=== PATIENT | male | born 1945 | race Caucasian/White ===

== ENCOUNTER 2018-11-02 07:17 | Inpatient (IN) | payer MEDICARE, BC ==
[2018-11-02 07:55] LABS: HEMATOCRIT 39.3 % (42.0-52.0); HEMOGLOBIN 14.1 gm/dl (14.0-18.0); MEAN CELL VOLUME 99.7 fl (81-97); MEAN CORPUSCULAR HGB CONC 35.9 g/dl (32-36); MEAN PLATELET VOLUME 10.6 fl (7.4-10.4); PLATELET COUNT 191 K/uL (130-400); RED BLOOD COUNT 3.94 M/uL (4.40-5.70); RED CELL DISTRIBUTION WIDTH 13.3 % (11.5-14.5); WHITE BLOOD COUNT W/O DIFF 14.3 K/uL (4.2-12.2)
[2018-11-02 07:57] LABS: MEAN CORPUSCULAR HEMOGLOBIN 35.7 pg (27-33)
[2018-11-02 08:04] LABS: BLOOD UREA NITROGEN 6 mg/dL (8-23); CREATININE 0.5 mg/dL (0.7-1.2); EST GLOMERULAR FILTRATION RATE > 60 mL/min
[2018-11-02 08:05] LABS: TOTAL PROTEIN 5.5 g/dL (6.6-8.7)
[2018-11-02 08:07] LABS: GLUCOSE,RANDOM 114 mg/dL (74-109)
[2018-11-02 08:09] LABS: ALB/GLOB RATIO 1.8 (1.1-1.8); ALBUMIN 3.5 g/dL (4.0-5.0); ALKALINE PHOSPHATASE 101 U/L (40-129); ALT/SGPT 28 U/L (<41); AST/SGOT 51 U/L (10.0-50.0); CREATINE PHOSPHOKINASE 1535 U/L (39-308)
[2018-11-02 08:11] LABS: CKMB 5.3 ng/mL (<6.73)
[2018-11-02 08:13] LABS: PLATELET ESTIMATE NORMAL (NORMAL)
--- NOTE | 2018-11-02 08:20 | Emergency Department Record ---
History of Present Illness - General Chief complaint: Weakness Stated complaint: WEAKNESS Time Seen by Provider: 11/02/18 07:30 Source: Patient, EMS Mode of Arrival: EMS Limitations: No limitations - History of Present Illness Initial comments: pt fell last night and was too weak to get back uo. he states his legs have been getting progressively weaker MD Complaint: Generalized weakness Onset/Timin -: Hour(s) Location: Generalized Improves with: None Worsens with: None Associated Symptoms: Denies other symptoms - [place] Coma Scale Eye Response: (4) Open spontaneously Motor Response: (6) Obeys commands Verbal Response: (5) Oriented [place] Total: 15 - Symptoms of Stroke Symptoms of stroke: Muscle Weakness, Unsteady When Walking - Related Data Home Medications Medication Instructions Recorded Confirmed Last Taken Amlodipine Besylate/Benazepril 1 tab PO DAILY 11/02/18 11/02/18 11/01/18 [Amlodipine-Benazepril 10-40 mg] Aspirin [Adult Low Dose Aspirin EC] 81 mg PO DAILY 11/02/18 11/02/18 11/01/18 Carvedilol [Coreg] 12.5 mg PO DAILY 11/02/18 11/02/18 11/01/18 Clonidine HCl [Catapres] 0.1 mg PO BID 11/02/18 11/02/18 11/01/18 Hydrocodone/Acetaminophen 1 tab PO Q8H PRN 11/02/18 11/02/18 11/01/18 18:00 [Hydrocodone/Acetaminophen 5mg/325mg] Metformin HCl [Metformin HCl ER] 500 mg PO BID 11/02/18 11/02/18 11/01/18 Multivit-Min/FA/Lycopen/Lutein 1 each PO DAILY 11/02/18 11/02/18 11/01/18 [Centrum Silver Men Tablet] Tamsulosin HCl [Flomax] 0.4 mg PO QHS 11/02/18 11/02/18 11/01/18 Allergies Allergy/AdvReac Type Severity Reaction Status Date / Time No Known Drug Allergies Allergy Verified 11/02/18 07:19 Travel Screening - Travel/Exposure Within Last 30 Days Have you traveled within the last 30 days?: No - Travel/Exposure Within Last Year Have you traveled outside the [place] in the last year?: No - Additonal Travel Details Have you been exposed to anyone with a communicable illness?: No - Travel Symptoms Symptom Screening: None Review of Systems Reviewed: No additional complaints except as noted below Constitutional: Reports: As per HPI. Denies: Chills, Fever, Malaise, Night sweats, Weakness, Weight change Eyes: Reports: As per HPI. Denies: Eye discharge, Eye pain, Photophobia, Vision change ENT: Reports: As per HPI. Denies: Congestion, Dental pain, Ear pain, Epistaxis, Hearing loss, Throat pain Respiratory: Reports: As per HPI. Denies: Cough, Dyspnea, Hemoptysis, Stridor, Wheezes Cardiovascular: Reports: As per HPI. Denies: Arrhythmia, Chest pain, Dyspnea on exertion, Edema, Murmurs, Orthopnea, Palpitations, Paroxysmal nocturnal dyspnea, Rheumatic Fever, Syncope Endocrine: Reports: As per HPI. Denies: Fatigue, Heat or cold intolerance, Polydipsia, Polyuria Gastrointestinal: Reports: As per HPI. Denies: Abdominal pain, Constipation, Diarrhea, Hematemesis, Hematochezia, Melena, Nausea, Vomiting Genitourinary: Reports: As per HPI. Denies: Dysuria, Frequency, Hematuria, Incontinence, Retention, Testicular pain, Testicular mass, Urgency Musculoskeletal: Reports: As per HPI. Denies: Arthralgia, Back pain, Gout, Joint swelling, Myalgia, Neck pain Skin: Reports: As per HPI. Denies: Bruising, Change in color, Change in hair/nails, Lesions, Pruritus, Rash Neurological: Reports: As per HPI, Weakness. Denies: Abnormal gait, Confusion, Headache, Numbness, Paresthesias, Seizure, Tingling, Tremors, Vertigo Psychiatric: Reports: As per HPI. Denies: Anxiety, Auditory hallucinations, Depression, Homicidal thoughts, Suicidal thoughts, Visual hallucinations Hematological/Lymphatic: Reports: As per HPI. Denies: Anemia, Blood Clots, Easy bleeding, Easy bruising, Swollen glands Past Medical History - SOCIAL HISTORY Smoking Status: Current every day smoker Alcohol Use: Heavy Alcohol Use Comment: 10 to 12 beers a day Drug Use: None - RESPIRATORY Hx Respiratory Disorders: No - CARDIOVASCULAR Hx Cardio Disorders: Yes Hx Hypertension: Yes - NEURO Hx Neuro Disorders: Yes Comment:: see surgeries - GI Hx GI Disorders: No - Hx Genitourinary Disorders: No - ENDOCRINE Hx Endocrine Disorders: Yes Hx Diabetes: Yes - MUSCULOSKELETAL Hx Musculoskeletal Disorders: No - PSYCH Hx Psych Problems: No - HEMATOLOGY/ONCOLOGY Hx Hematology/Oncology Disorders: No Family Medical History Any Significant Family History?: No Family Hx Comment (NOT TO BE USED IN PLACE OF ITEMS BELOW): adopted Physical Exam - General General Appearance: Alert, Oriented x3, Cooperative, No acute distress - Head Head exam: Normal inspection - Eye Eye exam: Normal appearance, PERRL, EOMI Pupils: Normal accommodation - ENT ENT exam: Normal exam, Mucous membranes moist, Normal external ear exam, Normal orophraynx Ear exam: Normal external inspection. negative: External canal tenderness Nasal Exam: Normal inspection. negative: Discharge, Sinus tenderness Mouth exam: Normal external inspection, Tongue normal Teeth exam: Normal inspection. negative: Dental caries Throat exam: Normal inspection. negative: Tonsillar erythema, Tonsillar exudate - Neck Neck exam: Normal inspection, Full ROM. negative: Tenderness - Respiratory Respiratory exam: Normal lung sounds bilaterally. negative: Respiratory distress - Cardiovascular Cardiovascular Exam: Regular rate, Normal rhythm, Normal heart sounds - GI/Abdominal GI/Abdominal exam: Soft, Normal bowel sounds. negative: Tenderness - Rectal Rectal exam: Deferred - exam: Deferred - Extremities Extremities exam: Normal inspection, Full ROM, Normal capillary refill, Other (edema and ecchymosis rle). negative: Tenderness - Back Back exam: Reports: Normal inspection, Full ROM. Denies: Muscle spasm, Rash noted, Tenderness - Neurological Neurological exam: Alert, CN II-XII intact, Normal gait, Oriented X3 - Psychiatric Psychiatric exam: Normal affect, Normal mood - Skin Skin exam: Dry, Intact, Normal color, Warm Course Vital Signs 11/02/18 07:20 Temperature 97.7 F Pulse Rate 77 Respiratory 18 Rate Blood Pressure 143/69 Pulse Ox 98 Medical Decision Making - Lab Data Result diagrams: 11/02/18 07:29 11/02/18 07:29 Lab Results 11/02/18 11/02/18 Range/Units 07:29 07:29 WBC 14.3 H (4.2-12.2) K/uL RBC 3.94 L (4.40-5.70) M/uL Hgb 14.1 (14.0-18.0) gm/dl Hct 39.3 L (42.0-52.0) % MCV 99.7 H (81-97) fl MCH 35.7 H (27-33) pg MCHC 35.9 (32-36) g/dl RDW 13.3 (11.5-14.5) % Plt Count 191 (130-400) K/uL MPV 10.6 H (7.4-10.4) fl Neutrophils % 86.0 H (47-80) % Band Neutrophils % 3.0 (0-5) % Eosinophils % Not Reportable Basophils % Not Reportable Absolute Neutrophils 12.00 Lymphocytes 8.0 L (16-45) % Monocytes 3.0 (0-9) % Platelet Estimate Normal (NORMAL) RBC Morphology Normal Sodium 126 L (136-145) mmol/L Potassium 4.8 H (3.4-4.5) mmol/L Chloride 89 L (98-107) mmol/L Carbon Dioxide 21.0 L (22-29) mmol/L Anion Gap 16.0 (7-16) BUN 6 L (8-23) mg/dL Creatinine 0.5 L (0.7-1.2) mg/dL Estimated GFR > 60 mL/min Random Glucose 114 H (74-109) mg/dL Calcium 8.6 L (8.8-10.2) mg/dL Total Bilirubin 0.60 (0.2-1.0) mg/dL AST 51 H (10.0-50.0) U/L ALT 28 (<41) U/L Alkaline Phosphatase 101 (40-129) U/L Creatine Kinase 1535 H (39-308) U/L CK-MB (CK-2) 5.3 (<6.73) ng/mL Troponin T < 0.010 (0-0.010) ng/mL Total Protein 5.5 L (6.6-8.7) g/dL Albumin 3.5 L (4.0-5.0) g/dL Globulin 2.0 (1.4-4.8) gm/dL Albumin/Globulin Ratio 1.8 (1.1-1.8) Ethyl Alcohol 0.000 (0-0.010) g/dL Disposition Disposition: Admit Clinical Impression: Hyponatremia Disposition: Still a Patient at [facility] Decision to Admit: Admit from ER Decision to Admit Date: 11/02/18 Decision to Admit Time: 09:33 Forms: Patient Portal Access Quality - Quality Measures Quality Measures: N/A - Blood Pressure Screening Does Patient Have Any of the Following: Active Dx of HTN Blood Pressure Classification: Hypertensive Reading Systolic Measurement: 143 Diastolic Measurement: 69 Screening for High Blood Pressure: Patient Exclusion, Hx of HTN [[id number]]
[2018-11-02] MEDS ORDERED: MVI, ADULT NO.4 WITH VIT K 10 ML, THIAMINE HCL IV 100 MG in 0.9 % SODIUM CHLORIDE 1000M... IV SCH ×3 (09:00)
[2018-11-02 09:43] LABS: URINE APPEARANCE CLEAR; URINE BILIRUBIN NEGATIVE (NEGATIVE); URINE BLOOD NEGATIVE (NEGATIVE); URINE COLOR YELLOW; URINE GLUCOSE (UA) NEGATIVE (NEGATIVE); URINE KETONE 15 mg/dL (NEGATIVE); URINE LEUKOCYTE ESTERASE NEGATIVE (NEGATIVE); URINE NITRITE NEGATIVE (NEGATIVE); URINE PROTEIN NEGATIVE (NEGATIVE); URINE UROBILINOGEN 0.2 E.U./dL (0.20 - 1.00)
[2018-11-02] MEDS ORDERED: ACETAMINOPHEN 500 MG TABLET PO PRN (12:11)
[2018-11-02] MEDS ORDERED: HYDROCODONE/APAP 5/325MG TABLET PO PRN (12:11)
[2018-11-02] MEDS: CLONIDINE HCL 0.1 MG TABLET PO SCH ×2 (13:33→21:47)
[2018-11-02] MEDS: NICOTINE 21 MG/24 HOUR PATCH TD SCH (13:33)
[2018-11-02] MEDS: CARVEDILOL 12.5 MG TABLET PO SCH (13:33)
[2018-11-02] MEDS: METFORMIN ER HCL 500 MG TAB.ER.24H PO SCH ×2 (13:34→21:48)
[2018-11-02 19:01] LABS: OSMOLALITY,URINE 242 mOsm/kg (250-1200)
[2018-11-02 19:11] LABS: OSMOLALITY,SERUM 262 mOsm/kg (280-295)
[2018-11-02] MEDS: LORAZEPAM 2 MG/ML VIAL IV PRN (19:37)
[2018-11-02] MEDS: TAMSULOSIN HCL 0.4 MG CAP.ER.24H PO SCH (21:47)
[2018-11-03] MEDS ORDERED: ZINC OXIDE 28.35 GM TUBE TOP ONE (00:31)
[2018-11-03] MEDS: LORAZEPAM 2 MG/ML VIAL IV PRN ×2 (05:31→18:10)
--- NOTE | 2018-11-03 09:08 | History & Physical ---
History of Present Illness - Date of Service Date of Service for History & Physical: 11/03/18 - History of Present Illness Admitting Diagnosis: hyponatremia, weakness. etoh abuse History of Present Illness: Mr. Araiza is a 73 y/o male who came in after being found by his neighbour in his home. The patient says that he was getting up out of his recliner on Saturday night and fell like his legs gave way from under him and he fell forward. He says that he wasn't able to get up and couldn't get to the phone to call anyone some he stayed on the floor all night approximately 8 hours. His neighbour hadn't seen him as usual and came to check on him and found him lying on the floor and called EMS. The patient says that it has happened before where he has passed out in his basement due to the same concerns of weakness (2009). He was admitted to [facility] at that time and he says that it was due to too much medication. ED course: - CT head negative for acute injury. - CXR negative - Labs WBC 14.4. Na 126 PCP: Dr. Duarte Travel Screening - Travel/Exposure Within Last 30 Days Have you traveled within the last 30 days?: No - Travel/Exposure Within Last Year Have you traveled outside the [place] in the last year?: No - Additonal Travel Details Have you been exposed to anyone with a communicable illness?: No - Travel Symptoms Symptom Screening: None Review of Systems Constitutional: Reports: As per HPI. Denies: Chills, Fever, Malaise, Night sweats, Weakness, Weight change Eyes: Reports: As per HPI. Denies: Eye discharge, Eye pain, Photophobia, Vision change ENT: Reports: As per HPI. Denies: Congestion, Dental pain, Ear pain, Epistaxis, Hearing loss, Throat pain Respiratory: Reports: As per HPI. Denies: Cough, Dyspnea, Hemoptysis, Stridor, Wheezes Cardiovascular: Reports: As per HPI. Denies: Arrhythmia, Chest pain, Dyspnea on exertion, Edema, Murmurs, Orthopnea, Palpitations, Paroxysmal nocturnal dyspnea, Rheumatic Fever, Syncope Endocrine: Reports: As per HPI. Denies: Fatigue, Heat or cold intolerance, Polydipsia, Polyuria Gastrointestinal: Reports: As per HPI. Denies: Abdominal pain, Constipation, Diarrhea, Hematemesis, Hematochezia, Melena, Nausea, Vomiting Genitourinary: Reports: As per HPI. Denies: Dysuria, Frequency, Hematuria, Incontinence, Retention, Testicular pain, Testicular mass, Urgency Musculoskeletal: Reports: As per HPI. Denies: Arthralgia, Back pain, Gout, Joint swelling, Myalgia, Neck pain Skin: Reports: As per HPI. Denies: Bruising, Change in color, Change in hair/nails, Lesions, Pruritus, Rash Neurological: Reports: As per HPI, Weakness. Denies: Abnormal gait, Confusion, Headache, Numbness, Paresthesias, Seizure, Tingling, Tremors, Vertigo Psychiatric: Reports: As per HPI. Denies: Anxiety, Auditory hallucinations, Depression, Homicidal thoughts, Suicidal thoughts, Visual hallucinations Hematological/Lymphatic: Reports: As per HPI. Denies: Anemia, Blood Clots, Easy bleeding, Easy bruising, Swollen glands Past Medical History - SOCIAL HISTORY Smoking Status: Current every day smoker Alcohol Use: Heavy Alcohol Use Comment: beer 10-12 daily Drug Use: None - RESPIRATORY Hx Respiratory Disorders: No - CARDIOVASCULAR Hx Cardio Disorders: Yes Hx Hypertension: Yes - NEURO Hx Neuro Disorders: Yes Comment:: see surgeries - GI Hx GI Disorders: No - Hx Genitourinary Disorders: No - ENDOCRINE Hx Endocrine Disorders: Yes Hx Diabetes: Yes Hx Thyroid Disease: No - MUSCULOSKELETAL Hx Musculoskeletal Disorders: No - PSYCH Hx Psych Problems: No - HEMATOLOGY/ONCOLOGY Hx Hematology/Oncology Disorders: No Family Medical History Any Significant Family History?: No Family Hx Comment (NOT TO BE USED IN PLACE OF ITEMS BELOW): adopted H&P Meds/Allergies - Allergies Allergies: Allergies Allergy/AdvReac Type Severity Reaction Status Date / Time No Known Drug Allergies Allergy Verified 11/02/18 07:19 - Home Medications Home Medications Medication Instructions Recorded Confirmed Last Taken Amlodipine Besylate/Benazepril 1 tab PO DAILY 11/02/18 11/02/18 11/01/18 [Amlodipine-Benazepril 10-40 mg] Aspirin [Adult Low Dose Aspirin EC] 81 mg PO DAILY 11/02/18 11/02/18 11/01/18 Carvedilol [Coreg] 12.5 mg PO DAILY 11/02/18 11/02/18 11/01/18 Clonidine HCl [Catapres] 0.1 mg PO BID 11/02/18 11/02/18 11/01/18 Hydrocodone/Acetaminophen 1 tab PO Q8H PRN 11/02/18 11/02/18 11/01/18 18:00 [Hydrocodone/Acetaminophen 5mg/325mg] Metformin HCl [Metformin HCl ER] 500 mg PO BID 11/02/18 11/02/18 11/01/18 Multivit-Min/FA/Lycopen/Lutein 1 each PO DAILY 11/02/18 11/02/18 11/01/18 [Centrum Silver Men Tablet] Tamsulosin HCl [Flomax] 0.4 mg PO QHS 11/02/18 11/02/18 11/01/18 - Active Medications Active Medications: Current Medications Acetaminophen (Tylenol 500mg Tab) 1,000 mg PO Q6H PRN PRN Reason: PAIN - MILD(1-4)/FEVER Hydrocodone Bitart/Acetaminophen ([place] 5mg/325mg) 1 each PO Q8H PRN PRN Reason: PAIN - MILD TO MODERATE (1-7) Amlodipine Besylate (Norvasc) 10 mg PO DAILY [facility] Aspirin (Ecotrin (Ec)) 81 mg PO DAILY [facility] Benazepril HCl (Lotensin) 40 mg PO DAILY [facility] Carvedilol (Coreg) 12.5 mg PO DAILY [facility] Last Admin: 11/02/18 13:33 Dose: 12.5 mg Documented by: Clonidine HCl (Catapres) 0.1 mg PO BID [facility] Last Admin: 11/02/18 21:47 Dose: 0.1 mg Documented by: Multivitamins/Minerals 10 ml/Thiamine HCl 100 mg/ Sodium Chloride 1,011 mls @ 0 mls/hr IV .Q0M [facility] Last Infusion: 11/02/18 16:40 Dose: Infused Documented by: Lorazepam (Ativan) 1 mg IV Q8H PRN PRN Reason: ANXIETY Last Admin: 11/03/18 05:31 Dose: 1 mg Documented by: Metformin HCl (Glucophage Xr) 500 mg PO BID [facility] Last Admin: 11/02/18 21:48 Dose: 500 mg Documented by: Nicotine (Nicotine 21mg) 1 patch TD Q24H [facility] Last Admin: 11/02/18 13:33 Dose: 1 patch Documented by: Tamsulosin HCl (Flomax) 0.4 mg PO QHS [facility] Last Admin: 11/02/18 21:47 Dose: 0.4 mg Documented by: Physical Exam - Vital Signs Vital Signs: Vital Signs - Last 24 Hrs Temp Pulse Pulse Resp BP BP Pulse Ox 11/03/18 07:38 97.9 F 95 H 16 111/61 99 11/03/18 06:00 97.1 F L 85 16 123/69 98 11/03/18 01:55 97.9 F 81 18 119/47 99 11/02/18 22:00 98.5 F 87 16 135/63 99 11/02/18 20:56 16 11/02/18 17:00 98.8 F 83 16 162/75 97 11/02/18 11:00 98.4 F 77 16 143/69 99 11/02/18 10:41 98.4 F 98 H 16 158/82 99 11/02/18 09:33 97.5 F L 85 16 146/70 97 - General General Appearance: Alert, Oriented x3, Cooperative, No acute distress Limitations: No limitations - Head Head exam: Normal inspection - Eye Eye exam: Normal appearance, PERRL, EOMI Pupils: Normal accommodation - ENT ENT exam: Normal exam, Mucous membranes moist, Normal external ear exam, Normal orophraynx Ear exam: Normal external inspection. negative: External canal tenderness Nasal Exam: Normal inspection. negative: Discharge, Sinus tenderness Mouth exam: Normal external inspection, Tongue normal Teeth exam: Normal inspection. negative: Dental caries Throat exam: Normal inspection. negative: Tonsillar erythema, Tonsillar exudate - Neck Neck exam: Normal inspection, Full ROM. negative: Tenderness - Respiratory Respiratory exam: Normal lung sounds bilaterally. negative: Respiratory di stress - Cardiovascular Cardiovascular Exam: Regular rate, Normal rhythm, Normal heart sounds Peripheral Pulses: 3+: Radial (R), Radial (L), Dorsalis Pedis (L) - GI/Abdominal GI/Abdominal exam: Soft, Normal bowel sounds. negative: Tenderness - Rectal Rectal exam: Deferred - exam: Deferred - Extremities Extremities exam: Normal inspection, Full ROM, Normal capillary refill, Other (edema and ecchymosis rle). negative: Tenderness Image of Full Body: 1 - Left hip bruising Image of Feet: 1 - Right ankle brusing and swelling - Back Back exam: Reports: Normal inspection, Full ROM. Denies: Muscle spasm, Rash noted, Tenderness - Neurological Neurological exam: Alert, CN II-XII intact, Normal gait, Oriented X3 - Psychiatric Psychiatric exam: Normal affect, Normal mood - Skin Skin exam: Dry, Intact, Normal color, Warm Results - Labs Result Diagrams: 11/03/18 09:05 11/03/18 09:05 Labs Last 24 Hours: Laboratory Results - last 24 hr 11/02/18 11/02/18 11/02/18 07:29 07:29 09:30 POC Glucose Serum Osmolality 262 L Magnesium 1.9 Urine Color Yellow Urine Appearance Clear Urine pH 5.5 Ur Specific [place] <= 1.005 Urine Protein Negative Urine Glucose (UA) Negative Urine Ketones 15 mg/dl H Urine Blood Negative Urine Nitrite Negative Urine Bilirubin Negative Urine Urobilinogen 0.2 Ur Leukocyte Esterase Negative Urine Osmolality 242 L 11/02/18 11/02/18 11/03/18 17:39 22:00 08:26 POC Glucose 121 H 125 H 96 Serum Osmolality Magnesium Urine Color Urine Appearance Urine pH Ur Specific [place] Urine Protein Urine Glucose (UA) Urine Ketones Urine Blood Urine Nitrite Urine Bilirubin Urine Urobilinogen Ur Leukocyte Esterase Urine Osmolality VTE H&P Assessment - Risk for VTE Risk for VTE: Yes Risk Level: High Risk Assessment Date: 11/03/18 Risk Assessment Time: 09:02 VTE Orders Placed or Will Be Placed: Yes Plan - Inpatient Certification Inpatient Certification: Admit to inpatient care: Based on my medical assessment, after consideration of patient's risk factors (age, co-morbidities and patient presenting symptoms and acuity), I expect that this patient will remain in the hospital greater than or equal to two midnights and that the services needed warrant inpatient care because: Patient Risk Factors: Hyponatremia, diabetes II Estimated length of stay: 72 hours The patient may reasonably be expected to be discharged or transferred to a hospital within 96 hours after admission to [facility]. I certify that my determination is in accordance with my understanding of Medicare requirements for reasonable and necessary inpatient services. 11/03/18 09:04 - Detailed Diagnosis and Plan (1) Hyponatremia Current Visit: Yes Status: Acute Base Code: E87.1 - HYPO-OSMOLALITY AND HYPONATREMIA Comment: 11/03/18: - Na 126 on admission, repeat 132. Low serum osmolality 262. Hypovolemic hyponatremia. No urine Na checked. But with diarrhea and no H2o intake hyponatremia presumed. - Check BMP in the am. - Keep fluids at 100mL/hr since still having loose stools. (2) Right ankle swelling Current Visit: Yes Status: Acute Base Code: M25.471 - EFFUSION, RIGHT ANKLE Comment: 11/03/18: - Ankle pain/swelling 2/2 fall. - Right ankle xray ordered. - Elevation, Icing, Tylenol 500mg Q6H PRN, [place] 5/325mg Q8H PRN. (3) EtOH dependence Current Visit: Yes Status: Acute Base Code: F10.20 - ALCOHOL DEPENDENCE, UNCOMPLICATED Comment: 11/03/18: - Drinks 10-12 beers daily. - CIWA score: CIWA scale Q24H - Ativan 1mg Q8H PRN - Thiamine, Folate daily. (4) HTN (hypertension) Current Visit: Yes Status: Acute Base Code: I10 - ESSENTIAL (PRIMARY) HYPERTENSION Comment: 11/03/18: - Resume home medications; Coreg, Amlodipine, Benazepril, Catapres. (5) Diabetes mellitus, type II Current Visit: Yes Status: Acute Base Code: E11.9 - TYPE 2 DIABETES MELLITUS WITHOUT COMPLICATIONS Comment: 11/03/18: - Resume Metfromin 500mg BID - ADA diet, Accuchecks ordered. (6) BPH (benign prostatic hyperplasia) Current Visit: Yes Status: Acute Base Code: N40.0 - BENIGN PROSTATIC HYPERPLASIA WITHOUT LOWER URINRY TRACT SYMP Comment: 11/03/18: - Resume Flomax (7) Smoker Current Visit: Yes Status: Acute Base Code: F17.200 - NICOTINE DEPENDENCE, UNSPECIFIED, UNCOMPLICATED Comment: 11/03/18: - 40 pk/yr smoking hx - Nicotine patch ordered. (8) DVT prophylaxis Current Visit: Yes Status: Acute Base Code: Z29.9 - ENCOUNTER FOR PROPHYLACTIC MEASURES, UNSPECIFIED Comment: 11/03/18: - Lovenox 40 mg sq Q8H (9) DNR (do not resuscitate) Current Visit: Yes Status: Acute Base Code: Z66 - DO NOT RESUSCITATE Comment: 11/03/18: - Discussed code status options with the patient and he chooses to be DNR.
[2018-11-03 09:26] LABS: ABSOLUTE NEUTROPHIL COUNT 6.09; BASO % 0.4 % (0-6); EOS % 0.1 % (0-6); GRAN % 77.7 % (47-80); HEMOGLOBIN 13.8 gm/dl (14.0-18.0); LYMPH % 9.6 % (16-45); MEAN CELL VOLUME 100.5 fl (81-97); MEAN CORPUSCULAR HGB CONC 35.4 g/dl (32-36); MEAN PLATELET VOLUME 10.1 fl (7.4-10.4); MONO % 12.2 % (0-9); PLATELET COUNT 167 K/uL (130-400); RED BLOOD COUNT 3.88 M/uL (4.40-5.70); RED CELL DISTRIBUTION WIDTH 13.6 % (11.5-14.5); WHITE BLOOD COUNT W/O DIFF 7.8 K/uL (4.2-12.2)
[2018-11-03 09:29] LABS: MEAN CORPUSCULAR HEMOGLOBIN 35.5 pg (27-33)
[2018-11-03 09:43] LABS: BLOOD UREA NITROGEN 4 mg/dL (8-23); CREATININE 0.4 mg/dL (0.7-1.2); EST GLOMERULAR FILTRATION RATE > 60 mL/min; GLUCOSE,RANDOM 130 mg/dL (74-109)
[2018-11-03] MEDS: AMLODIPINE BESYLATE 5MG TAB PO SCH (09:45)
[2018-11-03] MEDS: METFORMIN ER HCL 500 MG TAB.ER.24H PO SCH ×2 (09:46→21:36)
[2018-11-03] MEDS: CARVEDILOL 12.5 MG TABLET PO SCH (09:46)
[2018-11-03] MEDS: ASPIRIN 81 MG TABEC PO SCH (09:46)
[2018-11-03] MEDS: CLONIDINE HCL 0.1 MG TABLET PO SCH ×2 (09:46→21:36)
[2018-11-03] MEDS: BENAZEPRIL 20 MG TABLET PO SCH (09:46)
[2018-11-03] MEDS: ENOXAPARIN 40 MG/0.4 ML SYR SQ SCH (10:20)
[2018-11-03] MEDS: BACITRACIN 14 GM TUBE TOP SCH ×2 (10:27→21:37)
[2018-11-03] MEDS ORDERED: 0.9 % SODIUM CHLORIDE 100ML BAG IV SCH (10:30)
[2018-11-03] MEDS: FOLIC ACID 1 MG TABLET PO SCH (13:45)
[2018-11-03] MEDS: THIAMINE MONONITRATE 100 MG TABLET PO SCH (13:45)
[2018-11-03] MEDS: NICOTINE 21 MG/24 HOUR PATCH TD SCH (13:46)
[2018-11-03] MEDS: TAMSULOSIN HCL 0.4 MG CAP.ER.24H PO SCH (21:37)
[2018-11-04] MEDS: LORAZEPAM 2 MG/ML VIAL IV PRN ×3 (03:48→21:09)
--- NOTE | 2018-11-04 05:13 | CT SCAN REPORT ---
EXAM: EMERGENCY HEAD CT HISTORY: PATIENT FELL LAST NIGHT. HISTORY OF BRAIN ANEURYSM IN ABOUT 2012. TECHNIQUE: Axial CT scan of the head was performed without IV contrast. Comparison: None. Encounter: Initial. FINDINGS: No definite acute intracranial hemorrhage identified. There has been a prior right frontal craniotomy with probably a slight calcification of the underlying dura in this region. There is also a ventricular shunt tube in place entering from the right parietal occipital region and extending to the midline just above the pineal. The ventricles do not appear abnormally dilated. Some membrane thickening particularly inferiorly in the left maxillary sinus. No acute depressed calvarial fracture evident. There is some mild chronic appearing deep white matter changes, nonspecific, but likely representing some chronic small vessel deep white matter ischemic disease. Metallic density probably representing aneurysm clip in the region of the suprasellar cistern. IMPRESSION: 1. POSTOP RIGHT FRONTAL CRANIOTOMY AND ALSO A RIGHT SIDED VENTRICULAR SHUNT TUBE IN PLACE. NO VENTRICULOMEGALY EVIDENT. 2. NO DEFINITE ACUTE INTRACRANIAL HEMORRHAGE OR FOCAL MASS EFFECT EVIDENT. THERE IS PROBABLY SOME VERY THIN CALCIFICATION INVOLVING THE DURA UNDERLYING THE REGION OF THE RIGHT FRONTAL CRANIOTOMY. 3. SOME MILD CHRONIC APPEARING DEEP WHITE MATTER CHANGES. 4. MEMBRANE THICKENING PARTICULARLY INFERIORLY IN THE LEFT MAXILLARY SINUS. 5. APPARENT ANEURYSM CLIP IN THE REGION OF THE SUPRASELLAR CISTERN. JOB NUMBER: [id number] MTDD
--- NOTE | 2018-11-04 05:17 | RADIOLOGY REPORT ---
EXAM: CHEST, SINGLE VIEW HISTORY: WEAKNESS, HIGH WHITE BLOOD COUNT. TECHNIQUE: A single AP portable view of the chest was obtained. Comparison: AP chest 04/19/10. FINDINGS: The heart size is within normal limits. Catheter again seen coursing vertically along the medial aspect of the right hemithorax presumably a ventriculoperitoneal shunt tube. No definite acute infiltrate seen. and no pleural effusion or pneumothorax evident. Apical pleural thickening bilaterally. Prominent spurring in the thoracic spine. The lungs again appear somewhat hyperinflated suggesting underlying COPD. IMPRESSION: 1. THE LUNGS APPEAR SOMEWHAT HYPERINFLATED. NO DEFINITE ACUTE INFILTRATE SEEN. 2. PROMINENT SPURRING THORACIC SPINE. 3. PROBABLE VENTRICULOPERITONEAL SHUNT TUBE IN PLACE PREVIOUSLY NOTED. JOB NUMBER: [id number] MTDD
--- NOTE | 2018-11-04 05:19 | RADIOLOGY REPORT ---
EXAM: RIGHT ANKLE HISTORY: PATIENT FELL YESTERDAY WITH BRUISING RIGHT ANKLE. TECHNIQUE: Three views of the right ankle were obtained. Comparison: None. Encounter: Initial. FINDINGS: The bones diffusely appear osteopenic suggesting osteoporosis. There is an oblique very minimally displaced fracture of the distal fibular metaphysis with overlying soft tissue swelling. No definite associated tibial fracture identified. No dislocation evident. IMPRESSION: OBLIQUE MINIMALLY DISPLACED FRACTURE OF THE DISTAL FIBULAR METAPHYSIS WITH OVERLYING SOFT TISSUE SWELLING. JOB NUMBER: [id number] [facility]
[2018-11-04 06:39] LABS: BLOOD UREA NITROGEN 3 mg/dL (8-23); CREATININE 0.4 mg/dL (0.7-1.2); EST GLOMERULAR FILTRATION RATE > 60 mL/min; GLUCOSE,RANDOM 101 mg/dL (74-109)
[2018-11-04] MEDS ORDERED: POTASSIUM CHLORIDE 20 MEQ TABLET PO ONE (08:31)
[2018-11-04] MEDS: POTASSIUM CHL 20MEQ IN 1L NS 20 MEQ/1,000 ML BAG IV SCH ×2 (09:36→19:54)
[2018-11-04] MEDS: BENAZEPRIL 20 MG TABLET PO SCH (09:37)
[2018-11-04] MEDS: ENOXAPARIN 40 MG/0.4 ML SYR SQ SCH (09:37)
[2018-11-04] MEDS: ASPIRIN 81 MG TABEC PO SCH (09:37)
[2018-11-04] MEDS: AMLODIPINE BESYLATE 5MG TAB PO SCH (09:37)
[2018-11-04] MEDS: CLONIDINE HCL 0.1 MG TABLET PO SCH ×2 (09:39→22:10)
[2018-11-04] MEDS: THIAMINE MONONITRATE 100 MG TABLET PO SCH (09:40)
[2018-11-04] MEDS: METFORMIN ER HCL 500 MG TAB.ER.24H PO SCH ×2 (09:40→22:05)
[2018-11-04] MEDS: FOLIC ACID 1 MG TABLET PO SCH (09:41)
[2018-11-04] MEDS: BACITRACIN 14 GM TUBE TOP SCH ×2 (09:41→22:10)
[2018-11-04] MEDS: CARVEDILOL 12.5 MG TABLET PO SCH ×2 (09:41→22:11)
[2018-11-04] MEDS ORDERED: ZINC OXIDE 28.35 GM TUBE TOP PRN (09:47)
--- NOTE | 2018-11-04 11:35 | Physician Progress Note ---
Subjective - Date Date of Physician Progress Note: 11/04/18 Objective - Vital Signs Vital Signs: Vital Signs - Last 24 Hrs Temp Pulse Resp BP BP Pulse Ox 11/04/18 09:00 778 H 15 11/04/18 08:00 98.3 F 77 15 138/74 97 11/04/18 06:00 97.0 F L 85 18 139/83 98 11/04/18 03:45 97.6 F 90 16 134/81 99 11/03/18 22:00 97.5 F L 81 16 125/73 96 11/03/18 21:00 77 11/03/18 18:00 97.7 F 100 H 16 105/52 100 11/03/18 15:00 98.0 F 99 H 17 140/68 96 - General General Appearance: Alert, Oriented x3, Cooperative, No acute distress Limitations: No limitations - Head Head exam: Normal inspection - Eye Eye exam: Normal appearance, PERRL, EOMI Pupils: Normal accommodation - ENT ENT exam: Normal exam, Mucous membranes moist, Normal external ear exam, Normal orophraynx Ear exam: Normal external inspection. negative: External canal tenderness Nasal Exam: Normal inspection. negative: Discharge, Sinus tenderness Mouth exam: Normal external inspection, Tongue normal Teeth exam: Normal inspection. negative: Dental caries Throat exam: Normal inspection. negative: Tonsillar erythema, Tonsillar exudate - Neck Neck exam: Normal inspection, Full ROM. negative: Tenderness - Respiratory Respiratory exam: Normal lung sounds bilaterally. negative: Respiratory distress - Cardiovascular Cardiovascular Exam: Regular rate, Normal rhythm, Normal heart sounds Peripheral Pulses: 2+: Dorsalis Pedis (R), 3+: Radial (R), Radial (L), Dorsalis Pedis (L) - GI/Abdominal GI/Abdominal exam: Soft, Normal bowel sounds. negative: Tenderness - Rectal Rectal exam: Deferred - exam: Deferred - Extremities Extremities exam: Normal inspection, Full ROM, Normal capillary refill, Other (edema and ecchymosis rle). negative: Tenderness - Back Back exam: Reports: Normal inspection, Full ROM. Denies: Muscle spasm, Rash noted, Tenderness - Neurological Neurological exam: Alert, CN II-XII intact, Normal gait, Oriented X3 - Psychiatric Psychiatric exam: Normal affect, Normal mood - Skin Skin exam: Dry, Intact, Normal color, Warm Assessment and Plan - Assessment and Plan (1) Foot fracture, right Current Visit: Yes Status: Acute Base Code: S92.901A - UNSP FRACTURE OF RIGHT FOOT, INIT ENCNTR FOR CLOSED FRACTURE Comment: 11/04/18 -Right foot XR shows mild displaced fx -Consult for Dr Meraz, pt to limite wgt bearing until evaluated -edema, bruising noted, pt reports pain only with lateral movement (2) Diabetes mellitus, type II Current Visit: Yes Status: Acute Base Code: E11.9 - TYPE 2 DIABETES MELLITUS WITHOUT COMPLICATIONS Comment: : - Resume Metfromin 500mg BID - ADA diet, Accuchecks ordered. (3) EtOH dependence Current Visit: Yes Status: Acute Base Code: F10.20 - ALCOHOL DEPENDENCE, UNCOMPLICATED Comment: 11/04/18 -pt denies h/o DTs r, "shakes" or seizures from not drinking, has been drinking "case and a half" for appro 20 yrs -continue CIWA q 24H, pt currently PWD, no tremors noted, A&Ox4. 11/03/18: - Drinks 10-12 beers daily. - CIWA score: CIWA scale Q24H - Ativan 1mg Q8H PRN - Thiamine, Folate daily. (4) HTN (hypertension) Current Visit: Yes Status: Acute Base Code: I10 - ESSENTIAL (PRIMARY) HYPERTENSION Comment: 11/04/18 -VSS, continue home meds 11/03/18: - Resume home medications; Coreg, Amlodipine, Benazepril, Catapres. (5) Hyponatremia Current Visit: Yes Status: Acute Base Code: E87.1 - HYPO-OSMOLALITY AND HYPONATREMIA Comment: 11/04/18 -126->132->136, continue IVF r/t moderate amt of down time and suspected hyponatremia from hypovolemia -repeat BMP am 11/03/18: - Na 126 on admission, repeat 132. Low serum osmolality 262. Hypovolemic hyponatremia. No urine Na checked. But with diarrhea and no H2o intake hyponatremia presumed. - Check BMP in the am. - Keep fluids at 100mL/hr since still having loose stools. (6) Right ankle swelling Current Visit: Yes Status: Acute Base Code: M25.471 - EFFUSION, RIGHT ANKLE Comment: 11/04/18 -R ankle fx, [place] consult ordered 11/03/18: - Ankle pain/swelling 2/2 fall. - Right ankle xray ordered. - Elevation, Icing, Tylenol 500mg Q6H PRN, [place] 5/325mg Q8H PRN. (7) Smoker Current Visit: Yes Status: Acute Base Code: F17.200 - NICOTINE DEPENDENCE, UNSPECIFIED, UNCOMPLICATED Comment: 11/04/18: - 40 pk/yr smoking hx - Nicotine patch ordered. (8) DNR (do not resuscitate) Current Visit: Yes Status: Acute Base Code: Z66 - DO NOT RESUSCITATE Comment: 11/04/18 -continue DNR 11/03/18: - Discussed code status options with the patient and he chooses to be DNR. (9) DVT prophylaxis Current Visit: Yes Status: Acute Base Code: Z29.9 - ENCOUNTER FOR PROPHYLACTIC MEASURES, UNSPECIFIED Comment: 11/04/18: - Lovenox 40 mg sq Q8H Results - Labs Result Diagrams: 11/03/18 09:05 11/04/18 06:20 Labs Last 24 Hours: Laboratory Results - last 24 hr 11/03/18 11/03/18 11/03/18 15:01 18:01 22:00 Sodium Potassium Chloride Carbon Dioxide Anion Gap BUN Creatinine Estimated GFR POC Glucose 125 H 108 103 Random Glucose Calcium 11/04/18 11/04/18 06:20 08:31 Sodium 135 L Potassium 3.2 L Chloride 97 L Carbon Dioxide 28.0 Anion Gap 10.0 BUN 3 L Creatinine 0.4 L Estimated GFR > 60 POC Glucose 100 Random Glucose 101 Calcium 7.9 L DVT/PE Assessment - Risk for VTE Risk for VTE: No Risk Level: High Risk Assessment Date: 11/03/18 Risk Assessment Time: 09:02 VTE Orders Placed or Will Be Placed: Yes - Active Medicaitons Current Medications: Current Medications Acetaminophen (Tylenol 500mg Tab) 1,000 mg PO Q6H PRN PRN Reason: PAIN - MILD(1-4)/FEVER Hydrocodone Bitart/Acetaminophen ([place] 5mg/325mg) 1 each PO Q8H PRN PRN Reason: PAIN - MILD TO MODERATE (1-7) Amlodipine Besylate (Norvasc) 10 mg PO DAILY [facility] Last Admin: 11/04/18 09:37 Dose: 10 mg Documented by: Aspirin (Ecotrin (Ec)) 81 mg PO DAILY [facility] Last Admin: 11/04/18 09:37 Dose: 81 mg Documented by: Bacitracin () 1 gm TOP BID [facility] Last Admin: 11/04/18 09:41 Dose: 1 gm Documented by: Benazepril HCl (Lotensin) 40 mg PO DAILY [facility] Last Admin: 11/04/18 09:37 Dose: 40 mg Documented by: Carvedilol (Coreg) 12.5 mg PO BID [facility] Last Admin: 11/04/18 09:41 Dose: 12.5 mg Documented by: Clonidine HCl (Catapres) 0.1 mg PO BID [facility] Last Admin: 11/04/18 09:39 Dose: 0.1 mg Documented by: Enoxaparin Sodium (Lovenox) 40 mg SQ DAILY [facility] Last Admin: 11/04/18 09:37 Dose: 40 mg Documented by: Folic Acid () 1 mg PO DAILY [facility] Last Admin: 11/04/18 09:41 Dose: 1 mg Documented by: Potassium Chloride/Sodium Chloride ( Potassium Chl 20meq/) 20 meq in 1,000 mls @ 100 mls/hr IV Q10H [facility] Last Admin: 11/04/18 09:36 Dose: 100 mls/hr Documented by: Lorazepam (Ativan) 1 mg IV Q8H PRN PRN Reason: ANXIETY Last Admin: 11/04/18 03:48 Dose: 1 mg Documented by: Metformin HCl (Glucophage Xr) 500 mg PO BID [facility] Last Admin: 11/04/18 09:40 Dose: 500 mg Documented by: Nicotine (Nicotine 21mg) 1 patch TD Q24H [facility] Last Admin: 11/03/18 13:46 Dose: 1 patch Documented by: Tamsulosin HCl (Flomax) 0.4 mg PO QHS [facility] Last Admin: 11/03/18 21:37 Dose: 0.4 mg Documented by: Zinc Oxide (Desitin) 5 gm TOP ASDIR PRN PRN Reason: RASH AMI Plan - Labs Result Diagrams: 11/03/18 09:05 11/04/18 06:20
[2018-11-04] MEDS: NICOTINE 21 MG/24 HOUR PATCH TD SCH (16:04)
--- NOTE | 2018-11-04 16:05 | Rehab Evaluation ---
Patient Information - Patient Information Diagnosis: Hyponatremia; Weakness; Etoh abuse Ordered Treatment: PT Evaluate and Treat Status: Initial Evaluation Surgery: No Past Medical/Surgical Hx: PAST MEDICAL/SURGICAL HISTORY Past Surgical History brain anyurism PMH - Respiratory Hx Respiratory Disorders No PMH - Cardiovascular Hx Cardiovascular Disorders Yes Hx Hypertension Yes PMH - Neuro Hx Neurological Disorders Yes Comment: see surgeries PMH - GI Hx Gastrointestinal Disorders No PMH - Hx Genitourinary Disorders No PMH - Endocrine Hx Endocrine Disorders Yes Hx Diabetes Yes Hx Thyroid Disease No PMH - Musculoskeletal Hx Musculoskeletal Disorders No PMH - Psych Hx Psychiatric Problems No PMH - Hematology/Oncology Hx Hematology/Oncology No Disorders Premorbid Status: Detail (Prior to admission, patient reported that he did not use an assistive device. Patient reports that he was primarily independent with everything, but did notice that he was starting to slow down. Patient reported that he has neighbors that come in to help with his laundry due to his washer/dryer being in the basement that has 13 steps without railings. Patient also reports that his neighbors help with mowing his lawn.) Social History: Detail (Patient lives alone in 2 story home. Patient reports that he has 4 steps to enter the home in both the front and back entrances with bilateral railings. Patient reports that his bathroom is on the main floor. Patient reports that he has a tub/shower combination, but there are grab bars and a shower chair available. Patient reports that he has a raised toilet seat in his restroom with no grab bars available.) - Time With Patient Total Time Spent With Patient (Min): 20 Treatment Procedures: Detail (Initial evaluation; low complexity) Subjective Information - Subjective Information Per Patient (Patient reports that he's doing okay. He reports that he currently has no pain and that his leg feels much better wearing his boot.) Objective Data - Pain Pain Present: No - Mental Status Patient Orientation: Oriented x3 - ROM Not within normal limits (Patient was assessed grossly for range of motion. Patient's range of motion in shoulder abduction was limited to approximately 150 degrees bilaterally with visible compensation. Patient also had decreased sitting balance, which may have led to patient compensating due to apprehension to maintain balance. Further assessment is needed to note if there is a block in patient's upper extremity range of motion. Lower extremity range of motion was also assessed, which limited range found in the right hip flexion, with visible compensation with posterior trunk lean. Due to range being grossly screened in sitting, full range of hip flexion could not be fully assessed.) - Strength/Tone Not within normal limits (Patient was assessed with manual muscle testing screen and found that shoulder flexion was 3+/5 on the right and 4/5 on the left, elbow flexion 3+ on the right and 4/5 on the left, and hip flexion was recorded as a 3-/5 on the right with 4-/5 on the left. Patient was found to have 5/5 strength in remainder upper / lower extremity strength screen.) - Bed Mobility Independent (Patient completed supine to sitting L EOB with supervision assistance x1. Upon return back to supine, patient required minimal assistance with lifting right ankle due to increased weight from the boot. Patient also requested that therapist scoot him up in bed, however, therapist instructed patient on how to do it independently and required only supervision assistance.) - Transfers Dependent (Patient completed sit to stand transfer with minimal assistance x1 using 2-wheeled walker for support. Patient required minimal verbal cueing for hand placement of safe transfer.) - Balance Balance Sitting: Fair (Patient demonstrated lateral lean to the right upon sitting on edge of bed. During range of motion assessment of upper extremities, patient lost balance to the right and caught himself with his arms.) Balance Standing: Fair (When standing, patient maintained partial weight bearing precautions of right lower extremity with 2-wheeled walker support for a total of 3 minutes. Patient showed increased shakiness in the upper extremities.) - Gait Detail (Patient stood EOB with 2-wheeled walker for support while maintaining partial weight bearing status for total of 3 minutes. Patient demonstrated significant upper extremity shakiness that decreased as time progressed. Patient reported that he did not want to ambulate or transfer to a chair; therefore, patient was returned back to bed.) Therapy Assessment - Therapy Assessment Detail (Patient reported that he was in no pain when wearing his ankle boot. Patient was able to complete bed mobility transfer from supine to sitting to the edge of the bed with supervision assistance x1. Patient did demonstrate deficit in sitting balance, leaning to the right. Patient's gross range of motion was assessed and was found to have limited shoulder abduction and right hip flexion with noticeable compensation. Patient lost his balance to the right during range of motion assessment of upper extremities. Afterwards, patient's strength was assessed and found to have deficits in bilateral shoulder flexion, elbow flexion, and hip flexion with right side being weaker. Patient completed sit to stand transfer from L EOB with 2-wheeled walker for support with minimal assistance x1. Patient was able to stand for 3 minutes with 2-wheeled walker for support, but reported that he did not want to ambulate or transfer. Patient was transfered back to the bed and completed bed mobility to supine with supervision assistance x1 with education on how to independently scoot up in bed. Patient would benefit from further physical therapy focusing on strength training, balance, and gait training to ensure that patient is safe to complete ADL's independently. Subacute rehab is recommended to return patient to prior level of function.) Problem List - Problem List Physical Therapy Problem List: Detail (1. Decreased strength impacting patient's ability to perform ADL's independently. 2. Decreased sitting balance impacting patient's ability to complete functional activities. 3. Fractured right distal fibula requiring patient to maintain partial weight bearing precautions. 4. Patient on weight bearing precautions due to fracture, impacting patient's balance to perform ADL's.) Goals - Goals Physical Therapy Goals: 1. Assess patient's ambulation. 2. Patient will ascend and descend 4 steps with bilateral rails with supervision assistance x1 prior to discharge home. 3. Patient will complete sit to stand transfer without verbal cueing for hand placement for safety. 4. Patient will be able to maintain sitting in midline without deviation to the right for a total of 2 minutes. Plan - Plan Physical Therapy Plan: PT 1-2x a day Saturday-Saturday focusing on gait training, strengthening, and balance to ensure that patient is safe to complete functional activities independently.
[2018-11-04] MEDS: TAMSULOSIN HCL 0.4 MG CAP.ER.24H PO SCH (22:10)
[2018-11-05] MEDS: POTASSIUM CHL 20MEQ IN 1L NS 20 MEQ/1,000 ML BAG IV SCH ×2 (05:01→15:11)
[2018-11-05] MEDS: LORAZEPAM 2 MG/ML VIAL IV PRN ×3 (05:36→21:48)
[2018-11-05 07:28] LABS: BLOOD UREA NITROGEN 4 mg/dL (8-23); CREATININE 0.3 mg/dL (0.7-1.2); EST GLOMERULAR FILTRATION RATE > 60 mL/min; GLUCOSE,RANDOM 104 mg/dL (74-109)
[2018-11-05] MEDS ORDERED: MAGNESIUM OXIDE 400 MG TABLET PO ONE (08:10)
[2018-11-05] MEDS: AMLODIPINE BESYLATE 5MG TAB PO SCH (09:11)
[2018-11-05] MEDS: BENAZEPRIL 20 MG TABLET PO SCH (09:11)
[2018-11-05] MEDS: CARVEDILOL 12.5 MG TABLET PO SCH ×2 (09:12→21:47)
[2018-11-05] MEDS: CLONIDINE HCL 0.1 MG TABLET PO SCH ×2 (09:12→21:47)
[2018-11-05] MEDS: METFORMIN ER HCL 500 MG TAB.ER.24H PO SCH ×2 (09:12→21:46)
[2018-11-05] MEDS: ASPIRIN 81 MG TABEC PO SCH (09:12)
[2018-11-05] MEDS: ENOXAPARIN 40 MG/0.4 ML SYR SQ SCH (09:12)
[2018-11-05] MEDS: THIAMINE MONONITRATE 100 MG TABLET PO SCH (09:12)
[2018-11-05] MEDS: FOLIC ACID 1 MG TABLET PO SCH (09:12)
--- NOTE | 2018-11-05 12:25 | Physician Progress Note ---
Subjective - Date Date of Physician Progress Note: 11/05/18 Objective - Multidiciplinary Team Multidiciplinary Team: Case Management, Nursing, OT, PT, Social Work - Vital Signs Vital Signs: Vital Signs - Last 24 Hrs Temp Pulse Resp BP BP Pulse Ox 11/05/18 09:00 20 11/05/18 08:31 97.3 F L 85 18 128/77 95 11/05/18 06:00 97.5 F L 74 16 122/64 96 11/05/18 02:00 98.1 F 71 16 131/69 94 L 11/04/18 22:00 98.2 F 86 16 132/72 97 11/04/18 21:00 68 16 11/04/18 18:00 97.9 F 85 18 139/84 100 11/04/18 13:32 98 F 86 18 135/68 98 11/04/18 12:45 98.3 F 138/74 - General General Appearance: Alert, Oriented x3, Cooperative, No acute distress Limitations: No limitations - Head Head exam: Normal inspection - Eye Eye exam: Normal appearance, PERRL, EOMI Pupils: Normal accommodation - ENT ENT exam: Normal exam, Mucous membranes moist, Normal external ear exam, Normal orophraynx Ear exam: Normal external inspection. negative: External canal tenderness Nasal Exam: Normal inspection. negative: Discharge, Sinus tenderness Mouth exam: Normal external inspection, Tongue normal Teeth exam: Normal inspection. negative: Dental caries Throat exam: Normal inspection. negative: Tonsillar erythema, Tonsillar exudate - Neck Neck exam: Normal inspection, Full ROM. negative: Tenderness - Respiratory Respiratory exam: Normal lung sounds bilaterally. negative: Respiratory distress - Cardiovascular Cardiovascular Exam: Regular rate, Normal rhythm, Normal heart sounds Peripheral Pulses: 2+: Dorsalis Pedis (R), 3+: Radial (R), Radial (L), Dorsalis Pedis (L) - GI/Abdominal GI/Abdominal exam: Soft, Normal bowel sounds. negative: Tenderness - Rectal Rectal exam: Deferred - exam: Deferred - Extremities Extremities exam: Normal inspection, Full ROM, Normal capillary refill, Other (edema and ecchymosis rle). negative: Tenderness - Back Back exam: Reports: Normal inspection, Full ROM. Denies: Muscle spasm, Rash noted, Tenderness - Neurological Neurological exam: Alert, CN II-XII intact, Normal gait, Oriented X3 - Psychiatric Psychiatric exam: Normal affect, Normal mood - Skin Skin exam: Dry, Intact, Normal color, Warm Assessment and Plan - Assessment and Plan (1) Foot fracture, right Current Visit: Yes Status: Acute Base Code: S92.901A - UNSP FRACTURE OF RIGHT FOOT, INIT ENCNTR FOR CLOSED FRACTURE Comment: 11/05/18 -Dr Meraz consulted with pt, ortho boot placed and pt working with PT/OT for partial wgt bearing left leg 11/04/18 -Right foot XR shows mild displaced fx -Consult for Dr Meraz, pt to limite wgt bearing until evaluated -edema, bruising noted, pt reports pain only with lateral movement (2) Diabetes mellitus, type II Current Visit: Yes Status: Acute Base Code: E11.9 - TYPE 2 DIABETES MELLITUS WITHOUT COMPLICATIONS Comment: 11/05/18: - Resume Metfromin 500mg BID - ADA diet, Accuchecks ordered. (3) EtOH dependence Current Visit: Yes Status: Acute Base Code: F10.20 - ALCOHOL DEPENDENCE, UNCOMPLICATED Comment: 11/05/18 -pt PWD, no tremors noted -continue CIWA q24h 11/04/18 -pt denies h/o DTs r, "shakes" or seizures from not drinking, has been drinking "case and a half" for appro 20 yrs -continue CIWA q 24H, pt currently PWD, no tremors noted, A&Ox4. 11/03/18: - Drinks 10-12 beers daily. - CIWA score: CIWA scale Q24H - Ativan 1mg Q8H PRN - Thiamine, Folate daily. (4) HTN (hypertension) Current Visit: Yes Status: Acute Base Code: I10 - ESSENTIAL (PRIMARY) HYPERTENSION Comment: 11/04/18-11/05/18 -VSS, continue home meds 11/03/18: - Resume home medications; Coreg, Amlodipine, Benazepril, Catapres. (5) Hyponatremia Current Visit: Yes Status: Acute Base Code: E87.1 - HYPO-OSMOLALITY AND HYPONATREMIA Comment: 11/04/18-11/05/18 -126->132->136, continue IVF r/t moderate amt of down time and suspected hyponatremia from hypovolemia -repeat BMP am 11/03/18: - Na 126 on admission, repeat 132. Low serum osmolality 262. Hypovolemic hy ponatremia. No urine Na checked. But with diarrhea and no H2o intake hyponatremia presumed. - Check BMP in the am. - Keep fluids at 100mL/hr since still having loose stools. (6) Right ankle swelling Current Visit: Yes Status: Acute Base Code: M25.471 - EFFUSION, RIGHT ANKLE Comment: 11/05/18 -walking boot placed, intact, toes pwd 11/04/18 -R ankle fx, [place] consult ordered 11/03/18: - Ankle pain/swelling 2/2 fall. - Right ankle xray ordered. - Elevation, Icing, Tylenol 500mg Q6H PRN, [place] 5/325mg Q8H PRN. (7) Smoker Current Visit: Yes Status: Acute Base Code: F17.200 - NICOTINE DEPENDENCE, UNSPECIFIED, UNCOMPLICATED Comment: 11/05/18: - 40 pk/yr smoking hx - Nicotine patch ordered. (8) DNR (do not resuscitate) Current Visit: Yes Status: Acute Base Code: Z66 - DO NOT RESUSCITATE Comment: 11/05/18 -continue DNR 11/03/18: - Discussed code status options with the patient and he chooses to be DNR. (9) DVT prophylaxis Current Visit: Yes Status: Acute Base Code: Z29.9 - ENCOUNTER FOR PROPHYLACTIC MEASURES, UNSPECIFIED Comment: 11/05/18: - Lovenox 40 mg sq Q8H Results - Labs Result Diagrams: 11/03/18 09:05 11/05/18 06:19 Labs Last 24 Hours: Laboratory Results - last 24 hr 11/04/18 11/04/18 11/05/18 17:00 22:00 06:19 Sodium 135 L Potassium 3.4 Chloride 102 Carbon Dioxide 26.0 Anion Gap 7.0 BUN 4 L Creatinine 0.3 L Estimated GFR > 60 POC Glucose 117 H 109 Random Glucose 104 Calcium 7.8 L Magnesium 1.5 L 11/05/18 07:30 Sodium Potassium Chloride Carbon Dioxide Anion Gap BUN Creatinine Estimated GFR POC Glucose 109 Random Glucose Calcium Magnesium DVT/PE Assessment - Risk for VTE Risk for VTE: No Risk Level: High Risk Assessment Date: 11/03/18 Risk Assessment Time: 09:02 VTE Orders Placed or Will Be Placed: Yes - Active Medicaitons Current Medications: Current Medications Acetaminophen (Tylenol 500mg Tab) 1,000 mg PO Q6H PRN PRN Reason: PAIN - MILD(1-4)/FEVER Hydrocodone Bitart/Acetaminophen ([place] 5mg/325mg) 1 each PO Q8H PRN PRN Reason: PAIN - MILD TO MODERATE (1-7) Amlodipine Besylate (Norvasc) 10 mg PO DAILY [facility] Last Admin: 11/05/18 09:11 Dose: 10 mg Documented by: Aspirin (Ecotrin (Ec)) 81 mg PO DAILY [facility] Last Admin: 11/05/18 09:12 Dose: 81 mg Documented by: Bacitracin () 1 gm TOP BID [facility] Last Admin: 11/04/18 22:10 Dose: Not Given Documented by: Benazepril HCl (Lotensin) 40 mg PO DAILY [facility] Last Admin: 11/05/18 09:11 Dose: 40 mg Documented by: Carvedilol (Coreg) 12.5 mg PO BID [facility] Last Admin: 11/05/18 09:12 Dose: 12.5 mg Documented by: Clonidine HCl (Catapres) 0.1 mg PO BID [facility] Last Admin: 11/05/18 09:12 Dose: 0.1 mg Documented by: Enoxaparin Sodium (Lovenox) 40 mg SQ DAILY [facility] Last Admin: 11/05/18 09:12 Dose: 40 mg Documented by: Folic Acid () 1 mg PO DAILY [facility] Last Admin: 11/05/18 09:12 Dose: 1 mg Documented by: Potassium Chloride/Sodium Chloride ( Potassium Chl 20meq/) 20 meq in 1,000 mls @ 100 mls/hr IV Q10H [facility] Last Admin: 11/05/18 05:01 Dose: 100 mls/hr Documented by: Lorazepam (Ativan) 1 mg IV Q8H PRN PRN Reason: ANXIETY Last Admin: 11/05/18 05:36 Dose: 1 mg Documented by: Metformin HCl (Glucophage Xr) 500 mg PO BID [facility] Last Admin: 11/05/18 09:12 Dose: 500 mg Documented by: Nicotine (Nicotine 21mg) 1 patch TD Q24H [facility] Last Admin: 11/04/18 16:04 Dose: 1 patch Documented by: Tamsulosin HCl (Flomax) 0.4 mg PO QHS [facility] Last Admin: 11/04/18 22:10 Dose: 0.4 mg Documented by: Zinc Oxide (Desitin) 5 gm TOP ASDIR PRN PRN Reason: RASH AMI Plan - Labs Result Diagrams: 11/03/18 09:05 11/05/18 06:19
[2018-11-05] MEDS: BACITRACIN 14 GM TUBE TOP SCH ×2 (12:40→23:07)
--- NOTE | 2018-11-05 12:46 | Physical Therapy Tx Note ---
Physical Therapy Tx Note - Treatment Note Tolerated: Good Total Time Spent With Patient: 20 Physical Therapy Tx Note: Detail (The patient was in bed when PT arrived and denied pain. The patient was independent with supine to sit transfer. The patient was independent with sit to and from stand from higher surface. The patient ambulated with front wheeled walker a distance of 25 feet with CG/SBA of 1 plus 1 to handle IV PWB on R LE and R LE boot. The patient acheived sit to supine independently with use of UE's to lift R LE. The patient declined to sit in chair. The patient expressed fatigue after ambulation. The patient was encouraged to ambulate with nursing staff to bathroom. Discussed with CM and [employer] need for ongoing PT for a few days to increase overall UE and LE strength and increase independence with ambulation on levels and stairs.) Physical Therapy Problem List: Detail (1. Decreased strength impacting patient's ability to perform ADL's independently. 2. Decreased sitting balance impacting patient's ability to complete functional activities. 3. Fractured right distal fibula requiring patient to maintain partial weight bearing precautions. 4. Patient on weight bearing precautions due to fracture, impacting patient's bal ance to perform ADL's.) Physical Therapy Goals: 1. Assess patient's ambulation. 2. Patient will ascend and descend 4 steps with bilateral rails with supervision assistance x1 prior to discharge home. 3. Patient will complete sit to stand transfer without verbal cueing for hand placement for safety. 4. Patient will be able to maintain sitting in midline without deviation to the right for a total of 2 minutes. Physical Therapy Plan: PT 1-2x a day Saturday-Saturday focusing on gait training, strengthening, and balance to ensure that patient is safe to complete functional activities independently.
[2018-11-05] MEDS: NICOTINE 21 MG/24 HOUR PATCH TD SCH (13:44)
--- NOTE | 2018-11-05 16:24 | Physical Therapy Tx Note ---
Physical Therapy Tx Note - Treatment Note Physical Therapy Tx Note: Detail (Patient refused physical therapy.) Physical Therapy Problem List: Detail (1. Decreased strength impacting patient's ability to perform ADL's independently. 2. Decreased sitting balance impacting patient's ability to complete functional activities. 3. Fractured right distal fibula requiring patient to maintain partial weight bearing precautions. 4. Patient on weight bearing precautions due to fracture, impacting patient's balance to perform ADL's.) Physical Therapy Goals: 1. Assess patient's ambulation. 2. Patient will ascend and descend 4 steps with bilateral rails with supervision assistance x1 prior to discharge home. 3. Patient will complete sit to stand transfer without verbal cueing for hand placement for safety. 4. Patient will be able to maintain sitting in midline without deviation to the right for a total of 2 minutes. Physical Therapy Plan: PT 1-2x a day Saturday-Saturday focusing on gait training, strengthening, and balance to ensure that patient is safe to complete functional activities independently.
[2018-11-05] MEDS: TAMSULOSIN HCL 0.4 MG CAP.ER.24H PO SCH (21:47)
[2018-11-06] MEDS: POTASSIUM CHL 20MEQ IN 1L NS 20 MEQ/1,000 ML BAG IV SCH ×3 (00:53→20:58)
[2018-11-06] MEDS: LORAZEPAM 2 MG/ML VIAL IV PRN ×3 (06:32→22:53)
[2018-11-06 06:38] LABS: BLOOD UREA NITROGEN 4 mg/dL (8-23); CREATININE 0.3 mg/dL (0.7-1.2); EST GLOMERULAR FILTRATION RATE > 60 mL/min; GLUCOSE,RANDOM 102 mg/dL (74-109)
--- NOTE | 2018-11-06 07:50 | Medical Records Consult ---
DATE OF CONSULTATION: 11/04/2018 REASON FOR CONSULTATION: Nondisplaced fracture of the lateral malleolus of the right ankle. HISTORY OF PRESENT ILLNESS: This 73-year-old male gives a history of sustaining injury on 11/02/2018 when he tripped over the rug at home and fell. He then had to crawl to get the telephone and got abrasions on his elbows and his knees. He had a significant amount of swelling. The injury occurred in the evening of 11/02/2018. He did not go to the emergency department until 11/03/2018. The patient was subsequently admitted to the hospital for medical treatment and orthopedic evaluation. Physical examination of his right lower extremity does not reveal any calf pain. He has ecchymosis from the mid aspect of the tibia down to the ankle and significant amount of swelling in his foot. He does not have any tenderness or pain medially and no ecchymosis there. However, the lateral side of his ankle is moderately swollen and surprisingly minimally painful over the lateral malleolus. He has good flush to the toes. His sensation appears to be normal. He is not complaining of any pain in his right knee other than the fact that he has some superficial abrasions on the skin but that is the only place where it is bothersome. I have revealed the radiographs which were obtained at [facility], and these films demonstrate a nondisplaced fracture of the lateral malleolus which is oblique in nature from anterior-inferior to superior- posterior. No evidence of fracture of the medial malleolus is evident. DIAGNOSIS: Nondisplaced fracture of the right fibular malleolus. RECOMMENDATION: Discussed the findings with the patient and have recommended a CAM walker boot which will remain in place for approximately 6 weeks. He will be partial weightbearing with a walker. He will be seen back in the clinic on 11/19/2018. Repeat x-ray of his right ankle will be obtained at that time. CC: MD ERNESTO Power
[2018-11-06] MEDS: METFORMIN ER HCL 500 MG TAB.ER.24H PO SCH ×2 (09:49→21:59)
[2018-11-06] MEDS: THIAMINE MONONITRATE 100 MG TABLET PO SCH (09:49)
[2018-11-06] MEDS: CLONIDINE HCL 0.1 MG TABLET PO SCH ×2 (09:49→21:59)
[2018-11-06] MEDS: CARVEDILOL 12.5 MG TABLET PO SCH ×2 (09:49→21:59)
[2018-11-06] MEDS: FOLIC ACID 1 MG TABLET PO SCH (09:49)
[2018-11-06] MEDS: BENAZEPRIL 20 MG TABLET PO SCH (09:50)
[2018-11-06] MEDS: ASPIRIN 81 MG TABEC PO SCH (09:50)
[2018-11-06] MEDS: ENOXAPARIN 40 MG/0.4 ML SYR SQ SCH (09:50)
[2018-11-06] MEDS: AMLODIPINE BESYLATE 5MG TAB PO SCH (09:50)
[2018-11-06] MEDS: BACITRACIN 14 GM TUBE TOP SCH ×2 (09:51→22:02)
--- NOTE | 2018-11-06 12:57 | Physical Therapy Tx Note ---
Physical Therapy Tx Note - Treatment Note Tolerated: Good Total Time Spent With Patient: 35 Physical Therapy Tx Note: Detail (Patient was laying in bed a/o upon arrival. Patient ambulated 50 feet with front wheeled walker and contact guard assist. Patient ascended and descended 5 steps ea with contact guard assist while using handrails to help bear weight. Pt was fatigued following stair climbing and was returned to his room. Pt was contact guard assist with all transfers. Pt was returned to his bed with call light and bed side table next to him.) Physical Therapy Problem List: Detail (1. Decreased strength impacting patient's ability to perform ADL's independently. 2. Decreased sitting balance impacting patient's ability to complete functional activities. 3. Fractured right distal fibula requiring patient to maintain partial weight bearing precautions. 4. Patient on weight bearing precautions due to fracture, impacting patient's balance to perform ADL's.) Physical Therapy Goals: 1. Assess patient's ambulation. 2. Patient will ascend and descend 4 steps with bilateral rails with supervision assistance x1 prior to discharge home. 3. Patient will complete sit to stand transfer without verbal cueing for hand placement for safety. 4. Patient will be able to maintain sitting in midline without deviation to the right for a total of 2 minutes. Prognosis: Good Physical Therapy Plan: PT 1-2x a day Saturday-Saturday focusing on gait training, strengthening, and balance to ensure that patient is safe to complete functional activities independently.
[2018-11-06] MEDS: NICOTINE 21 MG/24 HOUR PATCH TD SCH (14:52)
--- NOTE | 2018-11-06 15:06 | Physical Therapy Tx Note ---
Physical Therapy Tx Note - Treatment Note Tolerated: Good Total Time Spent With Patient: 25 Physical Therapy Tx Note: Detail (Patient was laying in bed a/o upon arrival. Pt took 2 attempts to sit to stand but was indenpendent with transfers with contact guard. Pt ambulated 100 feet with front wheeled walker with contact guard assist. Pt had a missed step while walking but was able to correct himself. Pt was indenpendent with all bed mobilty and had good seated balance at edge of bed. Pt was returned to bed with call light and bed side table. Pt has met all PT goals and anticipates dicharge.) Physical Therapy Problem List: Detail (1. Decreased strength impacting patient's ability to perform ADL's independently. 2. Decreased sitting balance impacting patient's ability to complete functional activities. 3. Fractured right distal fibula requiring patient to maintain partial weight bearing precautions. 4. Patient on weight bearing precautions due to fracture, impacting patient's balance to perform ADL's.) Physical Therapy Goals: 1. Assess patient's ambulation. 2. Patient will ascend and descend 4 steps with bilateral rails with supervision assistance x1 prior to discharge home. 3. Patient will complete sit to stand transfer without verbal cueing for hand placement for safety. 4. Patient will be able to maintain sitting in midline without deviation to the right for a total of 2 minutes. Prognosis: Good Physical Therapy Plan: PT 1-2x a day Saturday-Saturday focusing on gait training, strengthening, and balance to ensure that patient is safe to complete functional activities independently.
--- NOTE | 2018-11-06 20:49 | Physician Progress Note ---
Subjective - Date Date of Physician Progress Note: 11/06/18 - Subjective Location: Right, Lower extremity Severity scale (1-10): 3 Quality: Aching Consistency: Intermittent Improves with: Rest Worsens with: Movement Objective - Multidiciplinary Team Multidiciplinary Team: Case Management, Nursing, OT, PT, Social Work - Vital Signs Vital Signs: Vital Signs - Last 24 Hrs Temp Pulse Resp BP BP Pulse Ox 11/06/18 17:50 97.5 F L 86 18 154/78 98 11/06/18 14:00 97.2 F L 87 16 117/60 96 11/06/18 11:40 97.5 F L 141/86 11/06/18 08:30 97.5 F L 82 18 141/86 95 11/06/18 06:00 98.0 F 74 16 129/73 97 11/05/18 22:00 97.5 F L 58 L 18 148/74 97 11/05/18 21:00 75 16 - General General Appearance: Alert, Oriented x3, Cooperative, No acute distress Limitations: No limitations - Head Head exam: Normal inspection - Eye Eye exam: Normal appearance, PERRL, EOMI Pupils: Normal accommodation - ENT ENT exam: Normal exam, Mucous membranes moist, Normal external ear exam, Normal orophraynx Ear exam: Normal external inspection. negative: External canal tenderness Nasal Exam: Normal inspection. negative: Discharge, Sinus tenderness Mouth exam: Normal external inspection, Tongue normal Teeth exam: Normal inspection. negative: Dental caries Throat exam: Normal inspection. negative: Tonsillar erythema, Tonsillar exudate - Neck Neck exam: Normal inspection, Full ROM. negative: Tenderness - Respiratory Respiratory exam: Normal lung sounds bilaterally. negative: Respiratory distress - Cardiovascular Cardiovascular Exam: Regular rate, Normal rhythm, Normal heart sounds Peripheral Pulses: 2+: Dorsalis Pedis (R), 3+: Radial (R), Radial (L), Dorsalis Pedis (L) - GI/Abdominal GI/Abdominal exam: Soft, Normal bowel sounds. negative: Tenderness - Rectal Rectal exam: Deferred - exam: Deferred - Extremities Extremities exam: Normal inspection, Full ROM, Normal capillary refill, Other (edema and ecchymosis rle). negative: Tenderness - Back Back exam: Reports: Normal inspection, Full ROM. Denies: Muscle spasm, Rash noted, Tenderness - Neurological Neurological exam: Alert, CN II-XII intact, Normal gait, Oriented X3 - Psychiatric Psychiatric exam: Normal affect, Normal mood - Skin Skin exam: Dry, Intact, Normal color, Warm Assessment and Plan - Assessment and Plan (1) Foot fracture, right Current Visit: Yes Status: Acute Base Code: S92.901A - UNSP FRACTURE OF RIGHT FOOT, INIT ENCNTR FOR CLOSED FRACTURE Comment: 11/06/18 -pt reports pain is tolerable with ortho boot -working with PT for ambulation and stairs -d/c home tomorrow with home PT 11/05/18 -Dr Meraz consulted with pt, ortho boot placed and pt working with PT/OT for partial wgt bearing left leg 11/04/18 -Right foot XR shows mild displaced fx -Consult for Dr Meraz, pt to limite wgt bearing until evaluated -edema, bruising noted, pt reports pain only with lateral movement (2) Diabetes mellitus, type II Current Visit: Yes Status: Acute Base Code: E11.9 - TYPE 2 DIABETES MELLITUS WITHOUT COMPLICATIONS Comment: 11/06/18: - Metfromin 500mg BID - ADA diet, Accuchecks ordered. (3) EtOH dependence Current Visit: Yes Status: Acute Base Code: F10.20 - ALCOHOL DEPENDENCE, UNCOMPLICATED Comment: 11/05/18-11/06/18 -pt PWD, no tremors noted -continue CIWA q24h 11/04/18 -pt denies h/o DTs r, "shakes" or seizures from not drinking, has been drinking "case and a half" for appro 20 yrs -continue CIWA q 24H, pt currently PWD, no tremors noted, A&Ox4. 11/03/18: - Drinks 10-12 beers daily. - CIWA score: CIWA scale Q24H - Ativan 1mg Q8H PRN - Thiamine, Folate daily. (4) HTN (hypertension) Current Visit: Yes Status: Acute Base Code: I10 - ESSENTIAL (PRIMARY) HYPERTENSION Comment: 11/04/18-11/06/18 -VSS, continue home meds 11/03/18: - Resume home medications; Coreg, Amlodipine, Benazepril, Catapres. (5) Hyponatremia Current Visit: Yes Status: Acute Base Code: E87.1 - HYPO-OSMOLALITY AND HYPONATREMIA Comment: 11/06/18 -Na 135, pt taking PO fluids, d/c IVF 11/04/18-11/05/18 -126->132->136, continue IVF r/t moderate amt of down time and suspected hyponatremia from hypovolemia -repeat BMP am 11/03/18: - Na 126 on admission, repeat 132. Low serum osmolality 262. Hypovolemic hyponatremia. No urine Na checked. But with diarrhea and no H2o intake hy ponatremia presumed. - Check BMP in the am. - Keep fluids at 100mL/hr since still having loose stools. (6) Right ankle swelling Current Visit: Yes Status: Acute Base Code: M25.471 - EFFUSION, RIGHT ANKLE Comment: 11/05/18-11/06/18 -walking boot placed, intact, toes pwd 11/04/18 -R ankle fx, [place] consult ordered 11/03/18: - Ankle pain/swelling 2/2 fall. - Right ankle xray ordered. - Elevation, Icing, Tylenol 500mg Q6H PRN, [place] 5/325mg Q8H PRN. (7) Smoker Current Visit: Yes Status: Acute Base Code: F17.200 - NICOTINE DEPENDENCE, UNSPECIFIED, UNCOMPLICATED Comment: 11/06/18: - 40 pk/yr smoking hx - Nicotine patch ordered. (8) DNR (do not resuscitate) Current Visit: Yes Status: Acute Base Code: Z66 - DO NOT RESUSCITATE Comment: 11/06/18 -continue DNR 11/03/18: - Discussed code status options with the patient and he chooses to be DNR. (9) DVT prophylaxis Current Visit: Yes Status: Acute Base Code: Z29.9 - ENCOUNTER FOR PROPHYLACTIC MEASURES, UNSPECIFIED Comment: 11/06/18: - Lovenox 40 mg sq Q8H Results - Labs Result Diagrams: 11/03/18 09:05 11/06/18 06:13 Labs Last 24 Hours: Laboratory Results - last 24 hr 11/05/18 11/06/18 11/06/18 22:00 06:13 07:30 Sodium 135 L Potassium 3.6 Chloride 102 Carbon Dioxide 25.0 Anion Gap 8.0 BUN 4 L Creatinine 0.3 L Estimated GFR > 60 POC Glucose 125 H 108 Random Glucose 102 Calcium 7.9 L DVT/PE Assessment - Risk for VTE Risk for VTE: No Risk Level: High Risk Assessment Date: 11/03/18 Risk Assessment Time: 09:02 VTE Orders Placed or Will Be Placed: Yes - Active Medicaitons Current Medications: Current Medications Acetaminophen (Tylenol 500mg Tab) 1,000 mg PO Q6H PRN PRN Reason: PAIN - MILD(1-4)/FEVER Hydrocodone Bitart/Acetaminophen ([place] 5mg/325mg) 1 each PO Q8H PRN PRN Reason: PAIN - MILD TO MODERATE (1-7) Amlodipine Besylate (Norvasc) 10 mg PO DAILY [facility] Last Admin: 11/06/18 09:50 Dose: 10 mg Documented by: Aspirin (Ecotrin (Ec)) 81 mg PO DAILY [facility] Last Admin: 11/06/18 09:50 Dose: 81 mg Documented by: Bacitracin () 1 gm TOP BID [facility] Last Admin: 11/06/18 09:51 Dose: 1 gm Documented by: Benazepril HCl (Lotensin) 40 mg PO DAILY [facility] Last Admin: 11/06/18 09:50 Dose: 40 mg Documented by: Carvedilol (Coreg) 12.5 mg PO BID [facility] Last Admin: 11/06/18 09:49 Dose: 12.5 mg Documented by: Clonidine HCl (Catapres) 0.1 mg PO BID [facility] Last Admin: 11/06/18 09:49 Dose: 0.1 mg Documented by: Enoxaparin Sodium (Lovenox) 40 mg SQ DAILY [facility] Last Admin: 11/06/18 09:50 Dose: 40 mg Documented by: Folic Acid () 1 mg PO DAILY [facility] Last Admin: 11/06/18 09:49 Dose: 1 mg Documented by: Potassium Chloride/Sodium Chloride ( Potassium Chl 20meq/) 20 meq in 1,000 mls @ 100 mls/hr IV Q10H [facility] Last Admin: 11/06/18 17:28 Dose: Not Given Documented by: Lorazepam (Ativan) 1 mg IV Q8H PRN PRN Reason: ANXIETY Last Admin: 11/06/18 14:50 Dose: 1 mg Documented by: Metformin HCl (Glucophage Xr) 500 mg PO BID [facility] Last Admin: 11/06/18 09:49 Dose: 500 mg Documented by: Nicotine (Nicotine 21mg) 1 patch TD Q24H [facility] Last Admin: 11/06/18 14:52 Dose: 1 patch Documented by: Tamsulosin HCl (Flomax) 0.4 mg PO QHS [facility] Last Admin: 11/05/18 21:47 Dose: 0.4 mg Documented by: Zinc Oxide (Desitin) 5 gm TOP ASDIR PRN PRN Reason: RASH AMI Plan - Labs Result Diagrams: 11/03/18 09:05 11/06/18 06:13
[2018-11-06] MEDS: TAMSULOSIN HCL 0.4 MG CAP.ER.24H PO SCH (21:59)
[2018-11-07] MEDS: POTASSIUM CHL 20MEQ IN 1L NS 20 MEQ/1,000 ML BAG IV SCH (06:22)
[2018-11-07] MEDS ORDERED: LORAZEPAM 0.5 MG TABLET PO PRN (08:17)
[2018-11-07] MEDS: CLONIDINE HCL 0.1 MG TABLET PO SCH (09:37)
[2018-11-07] MEDS: BACITRACIN 14 GM TUBE TOP SCH (09:37)
[2018-11-07] MEDS: CARVEDILOL 12.5 MG TABLET PO SCH (09:37)
[2018-11-07] MEDS: ASPIRIN 81 MG TABEC PO SCH (09:38)
[2018-11-07] MEDS: FOLIC ACID 1 MG TABLET PO SCH (09:38)
[2018-11-07] MEDS: METFORMIN ER HCL 500 MG TAB.ER.24H PO SCH (09:38)
[2018-11-07] MEDS: ENOXAPARIN 40 MG/0.4 ML SYR SQ SCH (09:39)
[2018-11-07] MEDS: AMLODIPINE BESYLATE 5MG TAB PO SCH (09:39)
[2018-11-07] MEDS: BENAZEPRIL 20 MG TABLET PO SCH (09:39)
[2018-11-07] MEDS: THIAMINE MONONITRATE 100 MG TABLET PO SCH (09:39)
--- NOTE | 2018-11-07 11:18 | Discharge Summary ---
Providers Discharge Summary Date: 11/07/18 Date of admission: 11/02/18 11:01 Expected Date of Discharge: 11/07/18 Attending physician: IZZY ZENG Primary care physician: CARRIE DUARTE M.D. Consults: Consult Orders 11/02/18 13:48 Consult - Case Management NOW Comment: Reason For Exam: recluse 11/04/18 09:23 Consult NOW Consulting Provider: TANVIR MERAZ Physician Instructions: Reason For Exam: mild displaced ankle fx Physical Exam - Vital Signs Vital Signs: Vital Signs - Last 24 Hrs Temp Pulse Resp BP BP Pulse Ox 11/07/18 09:29 97.3 F L 85 18 116/62 96 11/07/18 05:58 97.6 F 69 20 122/57 97 11/06/18 20:51 18 11/06/18 20:00 97.6 F 84 20 125/64 100 11/06/18 17:50 97.5 F L 86 18 154/78 98 11/06/18 14:00 97.2 F L 87 16 117/60 96 11/06/18 11:40 97.5 F L 141/86 - General General Appearance: Alert, Oriented x3, Cooperative, No acute distress Limitations: No limitations - Head Head exam: Normal inspection - Eye Eye exam: Normal appearance, PERRL, EOMI Pupils: Normal accommodation - ENT ENT exam: Normal exam, Mucous membranes moist, Normal external ear exam, Normal orophraynx Ear exam: Normal external inspection. negative: External canal tenderness Nasal Exam: Normal inspection. negative: Discharge, Sinus tenderness Mouth exam: Normal external inspection, Tongue normal Teeth exam: Normal inspection. negative: Dental caries Throat exam: Normal inspection. negative: Tonsillar erythema, Tonsillar exudate - Neck Neck exam: Normal inspection, Full ROM. negative: Tenderness - Respiratory Respiratory exam: Normal lung sounds bilaterally. negative: Respiratory distress - Cardiovascular Cardiovascular Exam: Regular rate, Normal rhythm, Normal heart sounds Peripheral Pulses: 2+: Dorsalis Pedis (R), 3+: Radial (R), Radial (L), Dorsalis Pedis (L) - GI/Abdominal GI/Abdominal exam: Soft, Normal bowel sounds. negative: Tenderness - Rectal Rectal exam: Deferred - exam: Deferred - Extremities Extremities exam: Normal inspection, Full ROM, Normal capillary refill, Other (edema and ecchymosis rle). negative: Tenderness - Back Back exam: Reports: Normal inspection, Full ROM. Denies: Muscle spasm, Rash noted, Tenderness - Neurological Neurological exam: Alert, CN II-XII intact, Normal gait, Oriented X3 - Psychiatric Psychiatric exam: Normal affect, Normal mood - Skin Skin exam: Dry, Intact, Normal color, Warm Hospitalization - Hospitalization Admission Diagnosis: hyponatremia, weakness. etoh abuse - Problem List/Discharge Diagnosis (1) Foot fracture, right Current Visit: Yes Status: Acute Base Code: S92.901A - UNSP FRACTURE OF RIGHT FOOT, INIT ENCNTR FOR CLOSED FRACTURE Comment: 11/07/18 -pt in no distress, aggrees with D/C home PT -neighbor to take him home and assist with other needs -follow up with Ortho as needed 11/06/18 -pt reports pain is tolerable with ortho boot -working with PT for ambulation and stairs -d/c home tomorrow with home PT 11/05/18 -Dr Meraz consulted with pt, ortho boot placed and pt working with PT/OT for partial wgt bearing left leg 11/04/18 -Right foot XR shows mild displaced fx -Consult for Dr Meraz, pt to limite wgt bearing until evaluated -edema, bruising noted, pt reports pain only with lateral movement (2) Diabetes mellitus, type II Current Visit: Yes Status: Acute Base Code: E11.9 - TYPE 2 DIABETES MELLITUS WITHOUT COMPLICATIONS Comment: 11/07/18 -d/c, continue home meds 11/06/18: - Metfromin 500mg BID - ADA diet, Accuchecks ordered. (3) EtOH dependence Current Visit: Yes Status: Acute Base Code: F10.20 - ALCOHOL DEPENDENCE, UNCOMPLICATED Comment: 11/05/18-11/07/18 -pt PWD, no tremors noted -continue CIWA q24h 11/04/18 -pt denies h/o DTs r, "shakes" or seizures from not drinking, has been drinking "case and a half" for appro 20 yrs -continue CIWA q 24H, pt currently PWD, no tremors noted, A&Ox4. 11/03/18: - Drinks 10-12 beers daily. - CIWA score: CIWA scale Q24H - Ativan 1mg Q8H PRN - Thiamine, Folate daily. (4) HTN (hypertension) Current Visit: Yes Status: Acute Base Code: I10 - ESSENTIAL (PRIMARY) HYPERTENSION Comment: 11/07/18 -continue home meds, d/c today 11/04/18-11/06/18 -VSS, continue home meds 11/03/18: - Resume home medications; Coreg, Amlodipine, Benazepril, Catapres. (5) Hyponatremia Current Visit: Yes Status: Acute Base Code: E87.1 - HYPO-OSMOLALITY AND HYPONATREMIA Comment: 11/07/18 -improved, f/u PCP -d/c today 11/06/18 -Na 135, pt taking PO fluids, d/c IVF 11/04/18-11/05/18 -126->132->136, continue IVF r/t moderate amt of down time and suspected hyponatremia from hypovolemia -repeat BMP am 11/03/18: - Na 126 on admission, repeat 132. Low serum osmolality 262. Hypovolemic hyponatremia. No urine Na checked. But with diarrhea and no H2o intake hyponatremia presumed. - Check BMP in the am. - Keep fluids at 100mL/hr since still having loose stools. (6) Right ankle swelling Current Visit: Yes Status: Acute Base Code: M25.471 - EFFUSION, RIGHT ANKLE Comment: 11/05/18-11/07/18 -walking boot placed, intact, toes pwd 11/04/18 -R ankle fx, [place] consult ordered 11/03/18: - Ankle pain/swelling 2/2 fall. - Right ankle xray ordered. - Elevation, Icing, Tylenol 500mg Q6H PRN, [place] 5/325mg Q8H PRN. (7) Smoker Current Visit: Yes Status: Acute Base Code: F17.200 - NICOTINE DEPENDENCE, UNSPECIFIED, UNCOMPLICATED Comment: 11/07/18: - 40 pk/yr smoking hx - Nicotine patch ordered. (8) DNR (do not resuscitate) Current Visit: Yes Status: Acute Base Code: Z66 - DO NOT RESUSCITATE Comme nt: 11/07/18 -continue DNR 11/03/18: - Discussed code status options with the patient and he chooses to be DNR. (9) DVT prophylaxis Current Visit: Yes Status: Acute Base Code: Z29.9 - ENCOUNTER FOR PROPHYLACTIC MEASURES, UNSPECIFIED Comment: 11/06/18: - Lovenox 40 mg sq Q8H - Hospitalization Course Disposition: Home Health Service Hospital Course: Mr. Araiza is a 73 y/o male who came in after being found by his neighbour in his home. The patient says that he was getting up out of his recliner on Saturday night and fell like his legs gave way from under him and he fell forward. He says that he wasn't able to get up and couldn't get to the phone to call anyone some he stayed on the floor all night approximately 8 hours. His neighbour hadn't seen him as usual and came to check on him and found him lying on the floor and called EMS. The patient says that it has happened before where he has passed out in his basement due to the same concerns of weakness (2009). He was admitted to [facility] at that time and he says that it was due to too much medication. ED course: - CT head negative for acute injury. - CXR negative - Labs WBC 14.4. Na 126 PCP: Dr. Duarte Procedures: Imaging and X-Rays 11/02/18 07:46 HEAD WO CONTRAST [CT] Stat 11/02/18 09:31 CXR [CHEST 1 VIEW] [RAD] Stat 11/03/18 09:29 ANKLE RIGHT 3 VIEWS [RAD] Stat Abnormal Labs: Abnormal Lab Results 11/02/18 11/02/18 11/02/18 Range/Units 07:29 07:29 07:29 WBC 14.3 H (4.2-12.2) K/uL RBC 3.94 L (4.40-5.70) M/uL Hgb (14.0-18.0) gm/dl Hct 39.3 L (42.0-52.0) % MCV 99.7 H (81-97) fl MCH 35.7 H (27-33) pg MPV 10.6 H (7.4-10.4) fl Neutrophils % 86.0 H (47-80) % Lymphocytes % (16-45) % Monocytes % (0-9) % Lymphocytes 8.0 L (16-45) % Sodium 126 L (136-145) mmol/L Potassium 4.8 H (3.4-4.5) mmol/L Chloride 89 L (98-107) mmol/L Carbon Dioxide 21.0 L (22-29) mmol/L BUN 6 L (8-23) mg/dL Creatinine 0.5 L (0.7-1.2) mg/dL POC Glucose (70-110) mg/dL Random Glucose 114 H (74-109) mg/dL Serum Osmolality 262 L (280-295) mOsm/kg Calcium 8.6 L (8.8-10.2) mg/dL Magnesium (1.6-2.4) mg/dL AST 51 H (10.0-50.0) U/L Creatine Kinase 1535 H (39-308) U/L Total Protein 5.5 L (6.6-8.7) g/dL Albumin 3.5 L (4.0-5.0) g/dL Urine Ketones (NEGATIVE) Urine Osmolality 242 L (250-1200) mOsm/kg 11/02/18 11/02/18 11/02/18 Range/Units 09:30 17:39 22:00 WBC (4.2-12.2) K/uL RBC (4.40-5.70) M/uL Hgb (14.0-18.0) gm/dl Hct (42.0-52.0) % MCV (81-97) fl MCH (27-33) pg MPV (7.4-10.4) fl Neutrophils % (47-80) % Lymphocytes % (16-45) % Monocytes % (0-9) % Lymphocytes (16-45) % Sodium (136-145) mmol/L Potassium (3.4-4.5) mmol/L Chloride (98-107) mmol/L Carbon Dioxide (22-29) mmol/L BUN (8-23) mg/dL Creatinine (0.7-1.2) mg/dL POC Glucose 121 H 125 H (70-110) mg/dL Random Glucose (74-109) mg/dL Serum Osmolality (280-295) mOsm/kg Calcium (8.8-10.2) mg/dL Magnesium (1.6-2.4) mg/dL AST (10.0-50.0) U/L Creatine Kinase (39-308) U/L Total Protein (6.6-8.7) g/dL Albumin (4.0-5.0) g/dL Urine Ketones 15 mg/dl H (NEGATIVE) Urine Osmolality (250-1200) mOsm/kg 11/03/18 11/03/18 11/03/18 Range/Units 09:05 09:05 15:01 WBC (4.2-12.2) K/uL RBC 3.88 L (4.40-5.70) M/uL Hgb 13.8 L (14.0-18.0) gm/dl Hct 39.0 L (42.0-52.0) % MCV 100.5 H (81-97) fl MCH 35.5 H (27-33) pg MPV (7.4-10.4) fl Neutrophils % (47-80) % Lymphocytes % 9.6 L (16-45) % Monocytes % 12.2 H (0-9) % Lymphocytes (16-45) % Sodium 132 L (136-145) mmol/L Potassium (3.4-4.5) mmol/L Chloride 93 L (98-107) mmol/L Carbon Dioxide (22-29) mmol/L BUN 4 L (8-23) mg/dL Creatinine 0.4 L (0.7-1.2) mg/dL POC Glucose 125 H (70-110) mg/dL Random Glucose 130 H (74-109) mg/dL Serum Osmolality (280-295) mOsm/kg Calcium 8.6 L (8.8-10.2) mg/dL Magnesium (1.6-2.4) mg/dL AST (10.0-50.0) U/L Creatine Kinase (39-308) U/L Total Protein (6.6-8.7) g/dL Albumin (4.0-5.0) g/dL Urine Ketones (NEGATIVE) Urine Osmolality (250-1200) mOsm/kg 11/04/18 11/04/18 11/04/18 Range/Units 06:20 11:45 17:00 WBC (4.2-12.2) K/uL RBC (4.40-5.70) M/uL Hgb (14.0-18.0) gm/dl Hct (42.0-52.0) % MCV (81-97) fl MCH (27-33) pg MPV (7.4-10.4) fl Neutrophils % (47-80) % Lymphocytes % (16-45) % Monocytes % (0-9) % Lymphocytes (16-45) % Sodium 135 L (136-145) mmol/L Potassium 3.2 L (3.4-4.5) mmol/L Chloride 97 L (98-107) mmol/L Carbon Dioxide (22-29) mmol/L BUN 3 L (8-23) mg/dL Creatinine 0.4 L (0.7-1.2) mg/dL POC Glucose 124 H 117 H (70-110) mg/dL Random Glucose (74-109) mg/dL Serum Osmolality (280-295) mOsm/kg Calcium 7.9 L (8.8-10.2) mg/dL Magnesium (1.6-2.4) mg/dL AST (10.0-50.0) U/L Creatine Kinase (39-308) U/L Total Protein (6.6-8.7) g/dL Albumin (4.0-5.0) g/dL Urine Ketones (NEGATIVE) Urine Osmolality (250-1200) mOsm/kg 11/05/18 11/05/18 11/06/18 Range/Units 06:19 22:00 06:13 WBC (4.2-12.2) K/uL RBC (4.40-5.70) M/uL Hgb (14.0-18.0) gm/dl Hct (42.0-52.0) % MCV (81-97) fl MCH (27-33) pg MPV (7.4-10.4) fl Neutrophils % (47-80) % Lymphocytes % (16-45) % Monocytes % (0-9) % Lymphocytes (16-45) % Sodium 135 L 135 L (136-145) mmol/L Potassium (3.4-4.5) mmol/L Chloride (98-107) mmol/L Carbon Dioxide (22-29) mmol/L BUN 4 L 4 L (8-23) mg/dL Creatinine 0.3 L 0.3 L (0.7-1.2) mg/dL POC Glucose 125 H (70-110) mg/dL Random Glucose (74-109) mg/dL Serum Osmolality (280-295) mOsm/kg Calcium 7.8 L 7.9 L (8.8-10.2) mg/dL Magnesium 1.5 L (1.6-2.4) mg/dL AST (10.0-50.0) U/L Creatine Kinase (39-308) U/L Total Protein (6.6-8.7) g/dL Albumin (4.0-5.0) g/dL Urine Ketones (NEGATIVE) Urine Osmolality (250-1200) mOsm/kg Condition at Discharge: (2) Stable Discharge Medications - Discharge Medications Prescriptions: Bacitracin 1 gm TOP BID 14 Days #1 tube Folic Acid 1 mg PO DAILY 14 Days #14 tablet Thiamine Mononitrate [Vitamin B-1] 100 mg PO DAILY 14 Days #14 tablet Home Medications: Ambulatory Orders Amlodipine Besylate/Benazepril [Amlodipine-Benazepril 10-40 mg] 1 tab PO DAILY 11/02/18 [Last Taken 11/01/18] Aspirin [Adult Low Dose Aspirin EC] 81 mg PO DAILY 11/02/18 [Last Taken 11/01/18] Carvedilol [Coreg] 12.5 mg PO BID 11/02/18 [Last Taken 11/01/18] Clonidine HCl [Catapres] 0.1 mg PO BID 11/02/18 [Last Taken 11/01/18] Hydrocodone/Acetaminophen [Hydrocodone/Acetaminophen 5mg/325mg] 1 tab PO Q8H PRN 11/02/18 [Last Taken 11/01/18 18:00] Metformin HCl [Metformin HCl ER] 500 mg PO BID 11/02/18 [Last Taken 11/01/18] Multivit-Min/FA/Lycopen/Lutein [Centrum Silver Men Tablet] 1 each PO DAILY 11/02/18 [Last Taken 11/01/18] Tamsulosin HCl [Flomax] 0.4 mg PO QHS 11/02/18 [Last Taken 11/01/18] Bacitracin 1 gm TOP BID 14 Days #1 tube 11/07/18 [Last Taken Unknown] Benazepril HCl [Lotensin] 40 mg PO DAILY tablet 11/07/18 [Last Taken Unknown] Folic Acid 1 mg PO DAILY 14 Days #14 tablet 11/07/18 [Last Taken Unknown] Thiamine Mononitrate [Vitamin B-1] 100 mg PO DAILY 14 Days #14 tablet 11/07/18 [Last Taken Unknown] Zinc Oxide [Desitin] 5 gm TOP ASDIR PRN tube 11/07/18 [Last Taken Unknown] Discharge Plan - Discharge Instructions Activity at Discharge: As Per Physical Therapy Diet at Discharge: Advance to Usual Diet Additional Instructions: Follow up appointment with Dr. Meraz at [facility] November 19 at 10:30am. New patient paperwork will be mailed to your home. Please complete and bring with you to this appointment. [facility] will provide Physical Therapy in your home. They will call you Saturday to start home services Please follow up with your primary provider in 2 weeks Quality Measures - Quality Measures Quality Measures: Advance Directives, Documentation of Current Medications in Medical Record, Elder Maltreatment Screen and Follow-Up Plan, Screening for High Blood Pressure and F/U Documented - Current Medications Quality Measure: Measure #130: Documentation of Current Medications Documentation of Current Medications: <Current Medications Documented/Reviewed> [G8488] - Blood Pressure Screening Quality Measure: Screening for High Blood Pressure and Follow-Up Documented Does Patient Have Any of the Following: Active Dx of HTN Blood Pressure Classification: Pre-Hypertensive BP Reading Systolic Measurement: 141 Diastolic Measurement: 86 Screening for High Blood Pressure: Patient Exclusion, Hx of HTN [G9744] - Advance Directives Quality Measure: Measure #47: Care Plan Advance Directives Established: No Advance Directives Information Provided To Patient: No Advance Directives on File: No Living Will: No Power of Gas Station Cashier: No Advance Care Planning: <Care Plan/Decision Maker Documented; Discussed & Documented> [1122R] - Elder Abuse Suspicion Index Screening: Elder Abuse Suspicion Index Screening Rely on people for bathing, dressing, shopping, banking, etc: Yes Prevented from getting food, clothes, medication, etc: No Made to feel shamed or threatened by someone: No Forced to sign papers or use money against will: No Feel afraid, touched in ways not wanted or hurt physically: No Poor eye contact, withdrawn, malnourished, cuts or bruises: No Screening Result: Negative result EASI Reference Information: Maryjo HERNÁNDEZ, Emelina C, Pedro Escalante, Ladan Edwards.Development and validation of a tool to assist physicians identification of elder abuse: The Elder Abuse Suspicion Index (EASI ). Journal of Elder Abuse and Neglect, 2008; 20 (3): 276-300. - Elder Maltreatment Screen Quality Measures: Elder Maltreatment Screen and Follow-Up Plan Elder Maltreatment Screen: <Negative, No Follow-Up Plan Required> [G8734]
== END 2018-11-07 13:05 | disposition home health service (06) | DRG 641 ==
LOC: ER 07:17 → MEDSURG 11:01
PROVIDERS: ADMIT Internal Medicine; ATTEND Internal Medicine
DX: E87.1 Hypo-osmolality and hyponatremia (principal); S92.901A Unspecified fracture of right foot, initial encounter for closed fracture; M25.471 Effusion, right ankle; F10.10 Alcohol abuse, uncomplicated; I10 Essential (primary) hypertension; E11.9 Type 2 diabetes mellitus without complications; F17.210 Nicotine dependence, cigarettes, uncomplicated; Z66 Do not resuscitate; Z91.81 History of falling; N40.0 Benign prostatic hyperplasia without lower urinary tract symptoms
CPT/HCPCS: 82550; 83735; 82553; 80053; 81003; 84484; 85027; 71045; 70450; G0480; 36416; 80048; 80320; 82948; 85025; 96365; 97530; 99223; 99232; 99233; 99239; 99285; J1650; J3411; J7030